=== PATIENT | male | born 1945 | race Caucasian/White ===

== ENCOUNTER → 2019-06-29 | Outpatient (CLI) | payer MEDICARE ==
[2019-06-29 15:22] LABS: HCT 47.1 % (39.0-53.0); HGB 15.9 gm/dL (13.0-17.5); MCH 30.3 pg (25.0-35.0); MCHC 33.8 g/dL (31.0-37.0); MCV 89.7 fL (80.0-100.0); Mean Platelet Volume 9.3; Platelet Count 165 k/uL (150-450); RBC 5.25 m/uL (4.30-5.90); RDW 15.2 % (11.5-15.5); WBC 7.4 k/uL (3.8-10.6)
[2019-06-29 15:50] LABS: Potassium 4.5 mmol/L (3.5-5.1)
== END | disposition home or self-care (01) ==
LOC: LABPAT 15:00
PROVIDERS: ATTEND Internal Medicine Interventional Cardiology
DX: Z01.812 Encounter for preprocedural laboratory examination (principal); I42.8 Other cardiomyopathies
CPT/HCPCS: 36415; 80051; 82565; 84520; 85027

== ENCOUNTER 2019-07-11 07:59 | Day surgery (SDC) | payer MEDICARE ==
[2019-07-06 12:07] VITALS: BMI 28.5
[2019-07-11 08:21] VITALS: TEMP 97.6
[2019-07-11] MEDS ORDERED: fentaNYL (PF) 50 MCG/ML 2 ML AMP ONE (08:44)
[2019-07-11] MEDS ORDERED: SODIUM CHLORIDE 0.9% 500 ML 500 ML IV ONE (08:56)
[2019-07-11] MEDS: BENZOCAINE SPRAY 1 CAN MUCOUS MEM ONE ×2 (08:56→09:10)
[2019-07-11] MEDS ORDERED: fentaNYL (PF) 50 MCG/ML 2 ML AMP IVP ONE (09:05)
[2019-07-11] MEDS: MIDAZOLAM (PF) 2 MG/2 ML VIAL IVP ONE ×2 (09:05→09:11)
[2019-07-11] MEDS ORDERED: SODIUM CHLORIDE 0.9% 1,000 ML IV SCH (09:45)
--- NOTE | 2019-07-11 09:57 | ECHOT ---
TRANSESOPHAGEAL ECHOCARDIOGRAM INDICATION: Evaluation of mitral valve. PROCEDURE: After explaining the procedure to the patient, its risks and the complications, his blood pressure, heart rate, O2 saturation was monitored. The throat was sprayed with Cetacaine. He received 25 mcg intravenous fentanyl and 2 mg intravenous Versed. The probe was introduced in the esophagus without difficulty. Images were obtained. Following that, the probe was removed. There was no immediate complication. FINDINGS: Left atrial size is dilated measuring 4.6 cm. Left atrial appendage is normal. Left ventricular size is normal. There is mild global hypokinesis, estimated ejection fraction 50%. The aortic valve revealed fibrocalcific change of the aortic cusp with preserved opening. Mitral valve revealed mild thickening of the mitral valve leaflets with no clear prolapse. Tricuspid valve was not well visualized. Descending thoracic aorta revealed no evidence of atherosclerotic changes. No pericardial effusion was noted. Doppler, pulse wave and color Doppler obtained and revealed moderate mitral regurgitation. The tricuspid valve was not well visualized and revealed mild tricuspid regurgitation. There was no shunting by color Doppler study. CONCLUSION: 1. Dilated left atrium with normal appearance left atrial appendage. 2. Normal left ventricular size with mild impairment of ventricular systolic function. 3. Aortic sclerosis with mild aortic regurgitation. 4. Mild thickening of the mitral valve leaflets with moderate central mitral regurgitation. 5. Tricuspid valve was not well visualized with at least mild tricuspid regurgitation. 6. No shunting by color Doppler study or contrast bubble study. 7. No pericardial effusion. 8. Normal appearance of the descending thoracic aorta. MMODL / IJN: [id number] / ADRIANA
[2019-07-11 10:19] VITALS: BP 155/90; PULSE 85; RESP 18
[2019-07-12] MEDS ORDERED: LISINOPRIL 5 MG TAB PO SCH (09:00)
[2019-07-12] MEDS ORDERED: ASPIRIN 325 MG TAB PO SCH (09:00)
== END 2019-07-11 10:30 | disposition home or self-care (01) ==
LOC: CATHCVL 07:59
PROVIDERS: ATTEND Internal Medicine Interventional Cardiology
DX: I08.3 Combined rheumatic disorders of mitral, aortic and tricuspid valves (principal); I42.9 Cardiomyopathy, unspecified; G47.33 Obstructive sleep apnea (adult) (pediatric); Z79.82 Long term (current) use of aspirin; Z79.899 Other long term (current) drug therapy; Z72.0 Tobacco use
CPT/HCPCS: 93312; 93320; 93325; J3010; J2250

== ENCOUNTER → 2021-04-17 | Outpatient (CLI) | payer MEDICARE ==
[2021-04-17 14:43] LABS: HCT 42.8 % (39.0-53.0); MCH 29.9 pg (25.0-35.0); MCHC 32.6 g/dL (31.0-37.0); MCV 91.7 fL (80.0-100.0); Mean Platelet Volume 9.5; Platelet Count 172 k/uL (150-450); RBC 4.67 m/uL (4.30-5.90); RDW 14.9 % (11.5-15.5); WBC 8.1 k/uL (3.8-10.6)
[2021-04-17 14:48] LABS: African American GFR (CKD) >90 (>60 ml/min/1.73 sqM); Anion Gap 5 mmol/L; Blood Urea Nitrogen 24 mg/dL (9-20); Carbon Dioxide 26 mmol/L (22-30); Chloride 107 mmol/L (98-107); Non-African American GFR(CKD) 85 (>60 ml/min/1.73 sqM); Potassium 4.3 mmol/L (3.5-5.1); Sodium 138 mmol/L (137-145)
== END | disposition home or self-care (01) ==
LOC: LABPAT 14:08
PROVIDERS: ATTEND Internal Medicine Interventional Cardiology
DX: Z01.812 Encounter for preprocedural laboratory examination (principal); I47.1 Supraventricular tachycardia
CPT/HCPCS: 36415; 80051; 82565; 84520; 85027

== ENCOUNTER 2021-05-08 09:31 | Day surgery (SDC) | payer MEDICARE ==
[2021-05-07 09:52] VITALS: BMI 27.8
[~2021-05-08 09:31] MED LIST: ALPRAZolam 0.25 MG TAB PO PRN; ALPRAZolam 0.5 MG TAB PO PRN; ASPIRIN 325 MG TAB PO STA; HEPARIN SODIUM,PORCINE 10,000 UNIT in SODIUM CHLORIDE 0.9% 1,000 ML IRRIGATION PRN; HEPARIN SODIUM,PORCINE 2,500 UNIT in SODIUM CHLORIDE 0.9% 250 ML IRRIGATION PRN; NITROGLYCERIN SL TABS 0.4 MG TAB SUBLINGUAL PRN; SODIUM CHLORIDE 0.9% 1,000 ML in EMPTY BAG 1 BAG IV ONE
[2021-05-08] MEDS ORDERED: MIDAZOLAM 2 MG/2 ML VIAL IV ONE (12:25)
[2021-05-08] MEDS ORDERED: LIDOCAINE 1% INJ 10MG/ML (20 ML MDV) SQ ONE (12:30)
[2021-05-08] MEDS ORDERED: IOPAMIDOL-370 125ML BTL INJ ONE (12:59)
[2021-05-08] MEDS ORDERED: CLOPIDOGREL 75 MG TAB PO ONE (13:00)
[2021-05-08] MEDS ORDERED: ZOLPIDEM 5 MG TAB PO PRN (13:10)
[2021-05-08] MEDS ORDERED: ATROPINE SULFATE 0.1 MG/ML 10ML SYRINGE IV PRN (13:10)
[2021-05-08] MEDS ORDERED: MAG HYDROX/AL HYDROX/SIMETH 30 ML CUP PO PRN (13:10)
[2021-05-08] MEDS ORDERED: RX INFO: IV CONTRAST WAS GIVEN 1 EACH MISC MISCELLANE PRN (13:10)
[2021-05-08] MEDS ORDERED: NITROGLYCERIN SL TABS 0.4 MG TAB SUBLINGUAL PRN (13:10)
[2021-05-08] MEDS ORDERED: SODIUM CHLORIDE 0.9% 1,000 ML IV SCH (13:15)
[2021-05-08] MEDS ORDERED: METOPROLOL SUCCINATE (ER) 25 MG TAB.ER.24H PO SCH (17:30)
--- NOTE | 2021-05-08 19:37 | PTCA ---
PERCUTANEOUSTRANS CORORONARY ANGIOGRAPHY DATE OF SERVICE: May 08, 2021. PERFORMING PHYSICIAN: Rajat Murillo MD. PROCEDURE PERFORMED: 1. Successful stenting of the first obtuse marginal branch of left circumflex using 2.75 x 15 mm Xience drug-eluting stent with an excellent angiographic results and reduction of stenosis from 80% to 0%. 2. Selective left common femoral artery angiogram. INDICATION: This is a 75-year-old gentleman who was diagnosed recently with cardiomyopathy. He was experiencing also symptoms of shortness of breath. He underwent myocardial perfusion imaging stress test and that came into be abnormal. Subsequently, he underwent a heart catheterization and that revealed severe disease involving OM1 of the LCX. APPROACH: Left common femoral artery. COMPLICATION: None. LEVEL OF SEDATION: Moderate with sedation length of 32 minutes. PROCEDURE DESCRIPTION: After obtaining informed consent, the patient was brought to the cardiac laborer shaft sinking. The left common femoral artery was cannulated using micropuncture technique and a micropuncture wire passed easily. Then I placed a 23 cm 6-Hungarian Brite tip sheath. The aortoiliac was extremely tortuous. Anticoagulation was achieved using heparin. Subsequently, the left main was engaged using JL4 guide. OM1 was wired using a run-through wire. PTCA ballooning was performed using 2.5 x 12 mm balloon before I deployed 2.75 x 15 mm Xience drug-eluting stent where the stent was positioned under fluoroscopy guidance and deployed under 14 atmospheres for 20 seconds with the following angiogram showing excellent angiographic results with reduction of stenosis from 80% to 0%. By the end, I did selective left common femoral artery angiogram. The procedure was completed without any complication. POSTPROCEDURE MANAGEMENT: 1. Dual anti-platelet therapy. 2. Aggressive cholesterol control. 3. Risk factor modifications. 4. Follow up with the patient. MMODL / IJN: [id number] /
[2021-05-08] MEDS ORDERED: ATORVASTATIN 20 MG TAB PO SCH (21:00)
[2021-05-09 02:19] VITALS: TEMP 98
[2021-05-09 06:23] LABS: African American GFR (CKD) >90 (>60 ml/min/1.73 sqM); Non-African American GFR(CKD) 85 (>60 ml/min/1.73 sqM)
[2021-05-09 07:41] VITALS: BP 123/70; PULSE 61; RESP 16
[2021-05-09] MEDS ORDERED: ASPIRIN 325 MG TAB PO SCH (09:00)
[2021-05-09] MEDS ORDERED: lisinopriL 5 MG TAB PO SCH (09:00)
[2021-05-09] MEDS ORDERED: CLOPIDOGREL 75 MG TAB PO SCH (09:00)
[2021-05-09] MEDS ORDERED: allopurinoL 300 MG TAB PO SCH (09:00)
[2021-05-09] MEDS ORDERED: LORATADINE 10 MG TAB PO SCH (09:00)
[2021-05-09] MEDS ORDERED: FLUTICASONE 50MCG/SPRAY NASAL 16GM EA NOSTRIL SCH (09:00)
[2021-05-09] MEDS ORDERED: ZINC SULFATE 220 MG CAP PO SCH (09:00)
[2021-05-09] MEDS ORDERED: ASCORBIC ACID 500 MG TAB PO SCH (09:00)
[2021-05-09] MEDS ORDERED: FAMOTIDINE 20 MG TAB PO SCH (09:00)
--- NOTE | 2021-05-09 11:23 | DS ---
DISCHARGE SUMMARY DATE OF ADMISSION: 05/08/2021 DATE OF DISCHARGE: 05/09/2021 BRIEF HISTORY: This is a very pleasant 75-year-old gentleman who underwent yesterday a heart catheterization and stenting of the left circumflex coronary artery with an excellent angiographic result and without any complication from left groin approach. He was seen this morning. He was asymptomatic. The left groin is soft and nontender and without any bruises. The patient is going to be discharged on dual anti-platelet therapy along with high intensity statin and I will follow up with the patient next week in the office. MMZOËL / IJN: [id number] /
== END 2021-05-09 11:36 | disposition home or self-care (01) ==
LOC: CATHCVL 09:31 → 6NMEDSUR 13:00 → CATHCVL 05-09 11:36
PROVIDERS: ATTEND Internal Medicine Interventional Cardiology
DX: I42.9 Cardiomyopathy, unspecified (principal); R06.02 Shortness of breath; I10 Essential (primary) hypertension; F17.210 Nicotine dependence, cigarettes, uncomplicated
CPT/HCPCS: 82565; C9600; C1760; C1887 ×2; C1725; C1769 ×5; C1894 ×2; C1874; J2250; J2001; J1644; Q9967

== ENCOUNTER 2022-01-30 15:12 | Inpatient (IN) | payer MEDICARE ==
--- NOTE | 2022-01-30 16:33 | ED ---
General Adult HPI - General Chief complaint: Dizziness Stated complaint: Low BP, dizziness Time Seen by Provider: 01/30/22 16:15 Source: patient, RN notes reviewed, old records reviewed Mode of arrival: ambulatory Limitations: no limitations - History of Present Illness Initial comments: This is a 76-year-old male who presents emergency Department with a past medical history significant for coronary artery disease with one stent and atrial fibrillation. Patient states he has had multiple episodes over the years of feeling like he might pass out but they only typically lasts a few seconds and then it subsides particularly after he takes a few deep breaths. Patient states over the last week has been having an episode at least once a day and over the last 3 days he is having multiple episodes all day long to the point where he thinks he might pass out and it culminated in him becoming extremely lightheaded thinking he was going to pass out while he was lying down at the dentist's office. Patient denies any fever chills or cough per patient denies any chest pain when it occurs patient states he does not feel his heart racing or any palpitations when it occurs. Patient denies abdominal pain patient denies nausea vomiting or diarrhea. Patient denies any swelling to his legs. - Related Data Home Medications Medication Instructions Recorded Confirmed Zinc 50 mg PO DAILY 07/06/19 01/30/22 Allopurinol [Zyloprim] 300 mg PO DAILY 05/07/21 01/30/22 Ascorbic Acid [Vitamin C] 1,000 mg PO DAILY 05/07/21 01/30/22 Metoprolol Succinate [Toprol XL] 25 mg PO AC-BRKFST 05/07/21 01/30/22 Aspirin EC [Ecotrin Low Dose] 81 mg PO DAILY 01/30/22 01/30/22 Cholecalciferol [Vitamin D3 (25 25 mcg PO DAILY 01/30/22 01/30/22 Mcg = 1000 Iu)] Pantoprazole [Protonix] 40 mg PO DAILY 01/30/22 01/30/22 methylPREDNISolone [Medrol Dose See Taper PO DIRECTED 01/30/22 01/30/22 Pack] Previous Rx's Medication Instructions Recorded Clopidogrel [Plavix] 75 mg PO DAILY #90 tab 05/09/21 Allergies Allergy/AdvReac Type Severity Reaction Status Date / Time No Known Allergies Allergy Verified 01/30/22 17:55 Review of Systems ROS Statement: Those systems with pertinent positive or pertinent negative responses have been documented in the HPI. ROS Other: All systems not noted in ROS Statement are negative. Past Medical History Past Medical History: Cancer, GERD/Reflux, Myocardial Infarction ([place]), Osteoarthritis (OA) Additional Past Medical History / Comment(s): mitral valve leak, murmer, gout, skin cancer Last Myocardial Infarction Date:: unknown History of Any Multi-Drug Resistant Organisms: None Reported Past Surgical History: Orthopedic Surgery Additional Past Surgical History / Comment(s): RIGHT KNEE ARTHROSCOPY, vidal cataracts Past Anesthesia/Blood Transfusion Reactions: No Reported Reaction Past Psychological History: No Psychological Hx Reported Smoking Status: Former smoker Past Alcohol Use History: None Reported Past Drug Use History: None Reported - Past Family History Father Family Medical History: Cancer Additional Family Medical History / Comment(s): brain tumor General Exam - General Exam Comments Initial Comments: GENERAL: Patient is well-developed and well-nourished. Patient is nontoxic and well- hydrated and is in no acute distress. ENT: Neck is soft and supple. No significant lymphadenopathy is noted. Oropharynx is clear. Moist mucous membranes. Neck has full range of motion without eliciting any pain. EYES: The sclera were anicteric and conjunctiva were pink and moist. Extraocular movements were intact and pupils were equal round and reactive to light. Eyelids were unremarkable. PULMONARY: Unlabored respirations. Good breath sounds bilaterally. No audible rales rhon chi or wheezing was noted. CARDIOVASCULAR: Patient has an irregular heart rate is tachycardic at about 100/m ABDOMEN: Soft and nontender with normal bowel sounds. SKIN: Skin is clear with no lesions or rashes and otherwise unremarkable. NEUROLOGIC: Patient is alert and oriented x3. Cranial nerves II through XII are grossly intact. Motor and sensory are also intact. Normal speech, volume and content. Symmetrical smile. MUSCULOSKELETAL: Normal extremities with adequate strength and full range of motion. No lower extremity swelling or edema. No calf tenderness. LYMPHATICS: No significant lymphadenopathy is noted PSYCHIATRIC: Normal psychiatric evaluation. Limitations: no limitations Course Vital Signs 01/30/22 01/30/22 01/30/22 15:26 16:44 17:37 Temperature 98.3 F Pulse Rate 84 77 181 H Pulse Rate [ 77 Bundle Breaker ] Respiratory 20 18 18 Rate Blood Pressure 148/99 140/117 140/120 O2 Sat by Pulse 97 96 94 L Oximetry 01/30/22 01/30/22 18:54 20:20 Temperature 98 F Pulse Rate 79 75 Pulse Rate [ Bundle Breaker ] Respiratory 18 20 Rate Blood Pressure 147/83 129/88 O2 Sat by Pulse 97 95 Oximetry Medical Decision Making - Medical Decision Making Patient had an episode of lightheadedness while in the emergency Department we did an EKG when it occurred EKG showed atrial fibrillation with rapid ventricular response at 160 bpm QRS is 100 a QT interval is 270 QTC is 362. Patient's EKG shows no ST segment elevation. Patient was placed on a Cardizem drip at 5 mg per hour. Patient had no more episodes since the Cardizem drip started. Repeat EKG was done shows sinus rhythm at 79 bpm OK interval is 201 QRS is 109 QT interval was 397 QTC is 425. Patient was throwing some PVCs as well. Patient's Cardizem drip was turned down to 2.5 mg per hour. I spoke with some physicians he agreed to admit the patient admitted the patient wrote admitting orders I consult cardiology. - Lab Data Result diagrams: 01/30/22 17:00 01/30/22 17:00 Lab Results 01/30/22 01/30/22 01/30/22 Range/Units 17:00 17:00 17:00 WBC 9.9 (3.8-10.6) k/uL RBC 5.38 (4.30-5.90) m/uL Hgb 16.3 (13.0-17.5) gm/dL Hct 50.2 (39.0-53.0) % MCV 93.2 (80.0-100.0) fL MCH 30.3 (25.0-35.0) pg MCHC 32.5 (31.0-37.0) g/dL RDW 14.1 (11.5-15.5) % Plt Count 174 (150-450) k/uL MPV 9.2 Neutrophils % 78 % Lymphocytes % 12 % Monocytes % 5 % Eosinophils % 2 % Basophils % 1 % Neutrophils # 7.7 (1.3-7.7) k/uL Lymphocytes # 1.2 (1.0-4.8) k/uL Monocytes # 0.5 (0-1.0) k/uL Eosinophils # 0.2 (0-0.7) k/uL Basophils # 0.1 (0-0.2) k/uL PT 10.5 (9.0-12.0) sec INR 1.0 (<1.2) APTT 23.7 (22.0-30.0) sec Sodium 138 (137-145) mmol/L Potassium 4.2 (3.5-5.1) mmol/L Chloride 106 (98-107) mmol/L Carbon Dioxide 22 (22-30) mmol/L Anion Gap 10 mmol/L BUN 26 H (9-20) mg/dL Creatinine 0.82 (0.66-1.25) mg/dL Est GFR (CKD-EPI)AfAm >90 (>60 ml/min/1.73 sqM) Est GFR (CKD-EPI)NonAf 85 (>60 ml/min/1.73 sqM) Glucose 106 H (74-99) mg/dL Calcium 9.2 (8.4-10.2) mg/dL Magnesium 2.2 (1.6-2.3) mg/dL Total Bilirubin 0.9 (0.2-1.3) mg/dL AST 21 (17-59) U/L ALT 23 (4-49) U/L Alkaline Phosphatase 59 (38-126) U/L Troponin I (0.000-0.034) ng/mL Total Protein 6.6 (6.3-8.2) g/dL Albumin 4.1 (3.5-5.0) g/dL 01/30/22 Range/Units 17:00 WBC (3.8-10.6) k/uL RBC (4.30-5.90) m/uL Hgb (13.0-17.5) gm/dL Hct (39.0-53.0) % MCV (80.0-100.0) fL MCH (25.0-35.0) pg MCHC (31.0-37.0) g/dL RDW (11.5-15.5) % Plt Count (150-450) k/uL MPV Neutrophils % % Lymphocytes % % Monocytes % % Eosinophils % % Basophils % % Neutrophils # (1.3-7.7) k/uL Lymphocytes # (1.0-4.8) k/uL Monocytes # (0-1.0) k/uL Eosinophils # (0-0.7) k/uL Basophils # (0-0.2) k/uL PT (9.0-12.0) sec INR (<1.2) APTT (22.0-30.0) sec Sodium (137-145) mmol/L Potassium (3.5-5.1) mmol/L Chloride (98-107) mmol/L Carbon Dioxide (22-30) mmol/L Anion Gap mmol/L BUN (9-20) mg/dL Creatinine (0.66-1.25) mg/dL Est GFR (CKD-EPI)AfAm (>60 ml/min/1.73 sqM) Est GFR (CKD-EPI)NonAf (>60 ml/min/1.73 sqM) Glucose (74-99) mg/dL Calcium (8.4-10.2) mg/dL Magnesium (1.6-2.3) mg/dL Total Bilirubin (0.2-1.3) mg/dL AST (17-59) U/L ALT (4-49) U/L Alkaline Phosphatase (38-126) U/L Troponin I 0.017 (0.000-0.034) ng/mL Total Protein (6.3-8.2) g/dL Albumin (3.5-5.0) g/dL Critical Care Time Critical Care Time: Yes Total Critical Care Time: 35 Disposition Clinical Impression: Atrial fibrillation with rapid ventricular response, Near syncope Disposition: ADMITTED IP TO THIS [facility] Time of Disposition: 19:20
[2022-01-30 17:12] LABS: Basophils # (A) 0.1 k/uL (0-0.2); Basophils % (A) 1 %; Eosinophils # (A) 0.2 k/uL (0-0.7); Eosinophils % (A) 2 %; HCT 50.2 % (39.0-53.0); HGB 16.3 gm/dL (13.0-17.5); Lymphocytes # (A) 1.2 k/uL (1.0-4.8); Lymphocytes % (A) 12 %; MCH 30.3 pg (25.0-35.0); MCHC 32.5 g/dL (31.0-37.0); MCV 93.2 fL (80.0-100.0); Mean Platelet Volume 9.2; Monocytes # (A) 0.5 k/uL (0-1.0); Monocytes % (A) 5 %; Neutrophils # (A) 7.7 k/uL (1.3-7.7); Neutrophils % (A) 78 %; Platelet Count 174 k/uL (150-450); RBC 5.38 m/uL (4.30-5.90); RDW 14.1 % (11.5-15.5); WBC 9.9 k/uL (3.8-10.6)
[2022-01-30 17:28] LABS: ALT 23 U/L (4-49); AST 21 U/L (17-59); African American GFR (CKD) >90 (>60 ml/min/1.73 sqM); Albumin 4.1 g/dL (3.5-5.0); Alkaline Phosphatase 59 U/L (38-126); Anion Gap 10 mmol/L; Blood Urea Nitrogen 26 mg/dL (9-20); Calcium 9.2 mg/dL (8.4-10.2); Carbon Dioxide 22 mmol/L (22-30); Chloride 106 mmol/L (98-107); Glucose 106 mg/dL (74-99); Magnesium 2.2 mg/dL (1.6-2.3); Non-African American GFR(CKD) 85 (>60 ml/min/1.73 sqM); Potassium 4.2 mmol/L (3.5-5.1); Sodium 138 mmol/L (137-145); Total Bilirubin 0.9 mg/dL (0.2-1.3); Total Protein 6.6 g/dL (6.3-8.2)
[2022-01-30 17:33] LABS: Partial Thromboplastin Time 23.7 sec (22.0-30.0); Prothrombin Time 10.5 sec (9.0-12.0)
[2022-01-30] MEDS ORDERED: DILTIAZEM DRIP BOLUS FROM BAG 1 MG SOLN IV ONE (17:36)
[2022-01-30] MEDS ORDERED: DILTIAZEM 125 MG in SODIUM CHLORIDE 0.9% 100 ML IV SCH (17:45)
--- NOTE | 2022-01-30 19:02 | XR ---
EXAMINATION TYPE: XR chest 2V DATE OF EXAM: 01/30/2022 6:53 PM COMPARISON:None TECHNIQUE: XR chest 2V Frontal and lateral views of the chest. CLINICAL INDICATION:Male, 76 years old with history of Chest Pain; FINDINGS: Lungs/Pleura: Low lung volumes are present. There is no evidence of pleural effusion, focal consolida tion, or pneumothorax. Pulmonary vascularity: Unremarkable. Heart/mediastinum: Cardiomediastinal silhouette is unremarkable. Musculoskeletal: No acute osseous pathology. IMPRESSION: No acute cardiopulmonary disease/process.
[2022-01-30] MEDS ORDERED: NITROGLYCERIN SL TABS 0.4 MG TAB SUBLINGUAL PRN (19:21)
[2022-01-31] MEDS ORDERED: HEPARIN SODIUM 1,000 UN/ML (10ML VL) IV ONE (01:01)
[2022-01-31] MEDS ORDERED: HEPARIN SODIUM 1,000 UN/ML (10ML VL) IV PRN (01:01)
[2022-01-31] MEDS ORDERED: HEPARIN SOD,PORK IN 0.45% NACL 25,000 UNIT in 0.45% NACL 1 250ML.BAG IV SCH (01:15)
--- NOTE | 2022-01-31 01:23 | P.HPIM ---
History of Present Illness H&P Date: 01/30/22 Patient is a 76-year-old male with a PMH of coronary artery disease status post 1 stent and gout who presented to the emergency room for palpitations and lightheadedness. The patient reports that over the past several years, he has had intermittent episodes of palpitations accompanied with lightheadedness usually lasting for a few seconds and resolving spontaneously. He reports having similar episode today which lasted for 3-5 minutes, which prompted him to come to the emergency room. 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 Murillo his deputy editor in chief in the office, during which an EKG was performed and was unremarkable. Notes that previously he was having an episode once weekly but over the past few weeks has been having episodes nearly daily and often multiple times a day. He reports feeling back to his baseline at the time of interview. He denied experiencing chest discomfort during any of these episodes. Reports occasional mild chest accompanied shortness of breath without nausea, or vomiting. Also denied fever, chills, cough, abdominal pain, diarrhea. EKG in the emergency room revealed A. fib with RVR at 168 bpm with repeat EKG showing sinus rhythm with PVCs at 75 bpm with Q waves in leads II, III, aVF, as well as V1 and V2. Chest x-ray was unremarkable. Laboratory evaluation was remarkable for troponin of 0.017. Review of systems: Pertinent positives and negatives as discussed in HPI, a complete review of systems was performed and all other systems are negative. Physical examination: General: non toxic, no distress, appears at stated age, overweight Derm: no unusual rashes/lesions no unusual ecchymoses, warm, dry Head: atraumatic, normocephalic, symmetric Eyes: EOMI, no lid lag, anicteric sclera, pupils equal round reactive to light ENT: Nose and ears atraumatic, no thrush, no pharyngeal erythema Neck: No thyromegaly, no cervical lymphadenopathy, trachea midline, supple Mouth: no lip lesion, mucus membranes moist Cardiovascular: Irregularly irregular, no murmur, positive posterior tibial pulse bilateral, no edema, capillary refill less than 2 seconds Lungs: CTA bilateral, no rhonchi, no rales , no accessory muscle use Abdominal: soft, nontender to palpation, no guarding, no appreciable organomegaly, normal bowel sounds Ext: no gross muscle atrophy, muscle strength 5 out of 5 in all 4 extremities grossly, no contractures, Neuro: CN II-XI grossly intact, light touch intact all 4 extremities, finger to nose within normal limits, Psych: Alert, oriented, appropriate affect Assessment/plan Newly diagnosed Ngoc. thais with RVR -Continue Cardizem infusion -Heparin infusion -Cardiology consulted -Cardiac monitoring -Echocardiogram -Check TSH Chronic conditions: Coronary artery disease status post stent -Continue with home meds DVT prophylaxis -Heparin infusion The patient is admitted with an anticipated less than 2 midnight stay for evaluation of afib CODE STATUS: Full Code Discussed with: Patient Anticipated discharge date: in am Anticipated discharge place: Home Past Medical History Past Medical History: Cancer, GERD/Reflux, Myocardial Infarction ([place]), Osteoarthritis (OA) Additional Past Medical History / Comment(s): mitral valve leak, murmer, gout, skin cancer Last Myocardial Infarction Date:: unknown History of Any Multi-Drug Resistant Organisms: None Reported Past Surgical History: Orthopedic Surgery Additional Past Surgical History / Comment(s): RIGHT KNEE ARTHROSCOPY, vidal cataracts Past Anesthesia/Blood Transfusion Reactions: No Reported Reaction Past Psychological History: No Psychological Hx Reported Smoking Status: Former smoker Past Alcohol Use History: None Reported Past Drug Use History: None Reported - Past Family History Father Family Medical History: Cancer Additional Family Medical History / Comment(s): brain tumor Medications and Allergies Home Medications Medication Instructions Recorded Confirmed Type Zinc 50 mg PO DAILY 07/06/19 01/30/22 History Allopurinol [Zyloprim] 300 mg PO DAILY 05/07/21 01/30/22 History Ascorbic Acid [Vitamin C] 1,000 mg PO DAILY 05/07/21 01/30/22 History Metoprolol Succinate [Toprol XL] 25 mg PO AC-BRKFST 05/07/21 01/30/22 History Clopidogrel [Plavix] 75 mg PO DAILY #90 tab 05/09/21 01/30/22 Rx Aspirin EC [Ecotrin Low Dose] 81 mg PO DAILY 01/30/22 01/30/22 History Cholecalciferol [Vitamin D3 (25 25 mcg PO DAILY 01/30/22 01/30/22 History Mcg = 1000 Iu)] Pantoprazole [Protonix] 40 mg PO DAILY 01/30/22 01/30/22 History methylPREDNISolone [Medrol Dose See Taper PO DIRECTED 01/30/22 01/30/22 His tory Pack] Allergies Allergy/AdvReac Type Severity Reaction Status Date / Time No Known Allergies Allergy Verified 01/30/22 17:55 Physical Exam Vitals: Vital Signs Temp Pulse Pulse Resp BP Pulse Ox 01/30/22 20:20 98 F 75 20 129/88 95 01/30/22 18:54 79 18 147/83 97 01/30/22 17:37 181 H 18 140/120 94 L 01/30/22 16:44 77 77 18 140/117 96 01/30/22 15:26 98.3 F 84 20 148/99 97 Intake and Output 01/30/22 01/30/22 01/30/22 06:59 14:59 22:59 Intake Total 13.667 Balance 13.667 Intake: Intake, IV Titration 13.667 Amount Diltiazem 125 mg In 13.667 Sodium Chloride 0.9% 100 ml @ 5 MG/HR 5 mls/hr IV .Q24H [facility] Rx#:[id number] Other: Weight 90.718 kg Results CBC & Chem 7: 01/30/22 17:00 01/30/22 17:00 Labs: Abnormal Lab Results - Last 24 Hours (Table) 01/30/22 Range/Units 17:00 BUN 26 H (9-20) mg/dL Glucose 106 H (74-99) mg/dL
[2022-01-31 01:49] LABS: Partial Thromboplastin Time 23.8 sec (22.0-30.0); Prothrombin Time 10.9 sec (9.0-12.0)
[2022-01-31] MEDS: PANTOPRAZOLE 40 MG TABLET PO SCH (06:37)
[2022-01-31] MEDS ORDERED: METOPROLOL SUCCINATE (ER) 25 MG TAB.ER.24H PO SCH (07:30)
[2022-01-31] MEDS: ASPIRIN 325 MG TAB PO SCH (07:57)
[2022-01-31] MEDS: allopurinoL 300 MG TAB PO SCH (07:57)
[2022-01-31] MEDS: CLOPIDOGREL 75 MG TAB PO SCH (07:57)
[2022-01-31] MEDS ORDERED: METOPROLOL TARTRATE 50 MG TAB PO SCH (09:00)
[2022-01-31] MEDS ORDERED: METOPROLOL SUCCINATE (ER) 50 MG TAB.ER.24H PO SCH (09:00)
[2022-01-31] MEDS ORDERED: METOPROLOL SUCCINATE (ER) 25 MG TAB.ER.24H PO ONE (09:00)
[2022-01-31] MEDS: APIXABAN 5 MG TAB PO SCH ×2 (10:21→19:58)
[2022-01-31 10:42] VITALS: BMI 26.6
[2022-01-31] MEDS: FLECAINIDE 50 MG TAB PO SCH ×2 (12:12→19:58)
--- NOTE | 2022-01-31 13:34 | P.CRDCN ---
History of Present Illness Consult date: 01/31/22 Consult reason: atrial fibrillation History of present illness: HISTORY OF PRESENT ILLNESS This is a 76-year-old male patient of Dr. Murillo with past medical history of hypertension, valvular heart disease and hyperlipidemia, cardiomyopathy with k nown EF of 40% with moderate to severe mitral regurgitation. 24 hour Holter monitor in 2020 revealed paroxysmal atrial tachycardia and at that time, patient was started on metoprolol. 05/08/2021 patient underwent successful stenting of the first obtuse marginal branch of the left circumflex Patient was on Dr. Murillo on and had no complaints at that time. H yesterday, while patient was at the dentist office he had episode of lightheadedness and thought he was going to pass out. He was found have a blood pressure of 75/50. He states he's had episodes like this for months. He was in [place] where his dentist is located went to initially to the [facility] but due to a 5 hour wait to be seen, patient's drove him to [facility] for evaluation. EKG was atrial fibrillation at rate of 168 bpm Initial blood pressure 148/99 CBC was unremarkable. INR 1.0. Electrolytes normal. BUN 26 creatinine 0.82. Blood sugar 106. Magnesium 2.2. Liver function tests normal. Troponin negative 3. TSH 1.780. Chest x-ray reveals no acute cardiopulmonary disease REVIEW OF SYSTEMS Constitutional: No fever, no chills. No weakness, fatigue or lethargy. EENT: No headache. No dizziness. Lungs: No shortness of breath, cough, no sputum production. No wheezing. Cardiovascular: No chest pain, no lower extremity edema. No palpitations. No paroxysmal nocturnal dyspnea. No orthopnea. Reports lightheadedness or dizziness. Reports near syncopal episodes. Abdominal: No abdominal pain. No nausea, vomiting. No diarrhea. No constipation. No bloody or tarry stools.. No loss of appetite. Genitourinary: No dysuria.. No urinary retention. Musculoskeletal: No myalgias. No muscle weakness, no gait dysfunction, no frequent falls. No back pain. No neck pain. Integumentary: No wounds, no lesions. No rash or pruritus. No unusual bruising. Neurologic: No aphasia. No facial droop. No change in mentation. No head injury. No headache. No paralysis. No paresthesia. Psychiatric: No depression. No anxiety. Endocrine: No abnormal blood sugars. PHYSICAL EXAMINATION Gen: This is a 86-year-old male. He is resting in bed and appears to be comfortable and in no acute distress. HEENT: Head is atraumatic, normocephalic. Pupils equal, round. Sclerae is anicteric. NECK: Supple. No JVD. No lymphadenopathy. No thyromegaly. LUNGS: Clear to auscultation. No wheezes or rhonchi. No intercostal retractions. HEART: Regular rate and rhythm. Systolic murmur. surveillance system monitor sinus rhythm running in the 70s and 80s ABDOMEN: Soft. Bowel sounds are present. No masses. No tenderness. EXTREMITIES: No pedal edema. No calf tenderness. NEUROLOGICAL: Patient is awake, alert and oriented x3. Cranial nerves 2 through 12 are grossly intact. ASSESSMENT A. fib with RVR, new diagnosis History of paroxysmal atrial tachycardia Hypertension Hyperlipidemia Cardiomyopathy with EF of 40% Moderate to severe mitral regurgitation Coronary artery disease PLAN Discontinue heparin drip and Cardizem drip Continue patient on Toprol-XL 50 mg daily Start patient on eliquis 5 mg twice daily and flecainide 100 mg every 12 hours Obtain 2-D echocardiogram and Doppler study to assess cardiac structure and function Would like to monitor patient for the next 24 hours after starting flecainide Further recommendations to follow based upon clinical course Thank you kindly for this consultation. Nurse practitioner note has been reviewed, I agree with documented findings and plan of care. Patient was seen and examined. Past Medical History Past Medical History: Cancer, GERD/Reflux, Myocardial Infarction (CO), Osteoarthritis (OA) Additional Past Medical History / Comment(s): mitral valve leak, murmer, gout, skin cancer Last Myocardial Infarction Date:: unknown History of Any Multi-Drug Resistant Organisms: None Reported Past Surgical History: Orthopedic Surgery Additional Past Surgical History / Comment(s): RIGHT KNEE ARTHROSCOPY, vidal cataracts Past Anesthesia/Blood Transfusion Reactions: No Reported Reaction Past Psychological History: No Psychological Hx Reported Smoking Status: Former smoker Past Alcohol Use History: None Reported Past Drug Use History: None Reported - Past Family History Father Family Medical History: Cancer Additional Family Medical History / Comment(s): brain tumor Medications and Allergies Home Medications Medication Instructions Recorded Confirmed Type Zinc 50 mg PO DAILY 07/06/19 01/30/22 History Allopurinol [Zyloprim] 300 mg PO DAILY 05/07/21 01/30/22 History Ascorbic Acid [Vitamin C] 1,000 mg PO DAILY 05/07/21 01/30/22 History Metoprolol Succinate [Toprol XL] 25 mg PO AC-BRKFST 05/07/21 01/30/22 History Clopidogrel [Plavix] 75 mg PO DAILY #90 tab 05/09/21 01/30/22 Rx Aspirin EC [Ecotrin Low Dose] 81 mg PO DAILY 01/30/22 01/30/22 History Cholecalciferol [Vitamin D3 (25 25 mcg PO DAILY 01/30/22 01/30/22 History Mcg = 1000 Iu)] Pantoprazole [Protonix] 40 mg PO DAILY 01/30/22 01/30/22 History methylPREDNISolone [Medrol Dose See Taper PO DIRECTED 01/30/22 01/30/22 H istory Pack] Allergies Allergy/AdvReac Type Severity Reaction Status Date / Time No Known Allergies Allergy Verified 01/30/22 17:55 Physical Exam Vitals: Vital Signs Temp Pulse Pulse Resp BP BP Pulse Ox 01/31/22 04:00 97.8 F 70 17 117/79 94 L 01/31/22 01:07 80 18 01/31/22 00:00 97.6 F 80 18 141/89 94 L 01/30/22 22:00 79 22 114/95 97 01/30/22 20:20 98 F 75 20 129/88 95 01/30/22 18:54 79 18 147/83 97 01/30/22 17:37 181 H 18 140/120 94 L 01/30/22 16:44 77 77 18 140/117 96 01/30/22 15:26 98.3 F 84 20 148/99 97 Intake and Output 01/30/22 01/31/22 01/31/22 22:59 06:59 14:59 Intake Total 13.667 120 Balance 13.667 120 Intake: Intake, IV Titration 13.667 Amount Diltiazem 125 mg In 13.667 Sodium Chloride 0.9% 100 ml @ 5 MG/HR 5 mls/hr IV .Q24H [facility] Rx#:[id number] Oral 120 Other: # Voids 1 Weight 90.718 kg 86.7 kg Results 01/30/22 17:00 01/30/22 17:00 Cardiac Enzymes 01/30/22 01/30/22 01/30/22 Range/Units 17:00 17:00 19:54 AST 21 (17-59) U/L Troponin I 0.017 0.023 (0.000-0.034) ng/mL 01/30/22 Range/Units 22:04 AST (17-59) U/L Troponin I 0.023 (0.000-0.034) ng/mL Coagulation 01/30/22 01/31/22 Range/Units 17:00 01:09 PT 10.5 10.9 (9.0-12.0) sec APTT 23.7 23.8 (22.0-30.0) sec CBC 01/30/22 Range/Units 17:00 WBC 9.9 (3.8-10.6) k/uL RBC 5.38 (4.30-5.90) m/uL Hgb 16.3 (13.0-17.5) gm/dL Hct 50.2 (39.0-53.0) % Plt Count 174 (150-450) k/uL Comprehensive Metabolic Panel 01/30/22 Range/Units 17:00 Sodium 138 (137-145) mmol/L Potassium 4.2 (3.5-5.1) mmol/L Chloride 106 (98-107) mmol/L Carbon Dioxide 22 (22-30) mmol/L BUN 26 H (9-20) mg/dL Creatinine 0.82 (0.66-1.25) mg/dL Glucose 106 H (74-99) mg/dL Calcium 9.2 (8.4-10.2) mg/dL AST 21 (17-59) U/L ALT 23 (4-49) U/L Alkaline Phosphatase 59 (38-126) U/L Total Protein 6.6 (6.3-8.2) g/dL Albumin 4.1 (3.5-5.0) g/dL Current Medications Generic Name Dose Route Start Last Admin Trade Name Freq PRN Reason Stop Dose Admin Allopurinol 300 mg 01/31/22 09:00 01/31/22 07:57 Allopurinol 300 Mg Tab PO 300 mg DAILY PATSY Administration Aspirin 325 mg 01/31/22 09:00 01/31/22 07:57 Aspirin 325 Mg Tab PO 325 mg DAILY PATSY Administration Clopidogrel Bisulfate 75 mg 01/31/22 09:00 01/31/22 07:57 Clopidogrel 75 Mg Tab PO 75 mg DAILY PATSY Administration Heparin Sodium (Porcine) 0 unit 01/31/22 01:01 Heparin Sodium 1,000 Un/Ml (10ml Vl) IV PER PROTOCOL PRN Low PTT Protocol Diltiazem HCl 125 mg/ Sodium 125 mls @ 5 mls/hr 01/30/22 17:45 01/30/22 20:41 Chloride IV 2.5 mg/hr .Q24H PATSY 2.5 mls/hr Infusion 5 MG/HR Heparin Sodium/Sodium Chloride 250 mls @ 10 mls/hr 01/31/22 01:15 01/31/22 04:06 25,000 unit/ Sodium Chloride IV 11.0232 units/kg/hr .Q24H PATSY 10 mls/hr Administration Protocol 11.0232 UNITS/KG/HR Metoprolol Succinate 50 mg 02/01/22 09:00 Metoprolol Succinate (Er) 50 Mg Tab.Er.24h PO DAILY [facility] Nitroglycerin 0.4 mg 01/30/22 19:21 Nitroglycerin Sl Tabs 0.4 Mg Tab SUBLINGUAL Q5M PRN Chest Pain Pantoprazole Sodium 40 mg 01/31/22 07:30 01/31/22 06:37 Pantoprazole 40 Mg Tablet PO 40 mg AC-BRKFST [facility] Administration Intake and Output 01/30/22 01/31/22 01/31/22 22:59 06:59 14:59 Intake Total 13.667 120 Balance 13.667 120 Intake: Intake, IV Titration 13.667 Amount Diltiazem 125 mg In 13.667 Sodium Chloride 0.9% 100 ml @ 5 MG/HR 5 mls/hr IV .Q24H [facility] Rx#:[id number] Oral 120 Other: # Voids 1 Weight 90.718 kg 86.7 kg 01/30/22 17:00 01/30/22 17:00
--- NOTE | 2022-01-31 13:39 | P.PN ---
Subjective Progress Note Date: 01/31/22 History of Present Illness: H&P Date: 01/30/22 Patient is a 76-year-old male with a PMH of coronary artery disease status post 1 stent and gout who presented to the emergency room for palpitations and lightheadedness. The patient reports that over the past several years, he has had intermittent episodes of palpitations accompanied with lightheadedness usually lasting for a few seconds and resolving spontaneously. He reports having similar episode today which lasted for 3-5 minutes, which prompted him to come to the emergency room. 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 Murillo his occupational medicine physician in the office, during which an EKG was performed and was unremarkable. Notes that previously he was having an episode once weekly but over the past few weeks has been having episodes nearly daily and often multiple times a day. He reports feeling back to his baseline at the time of interview. He denied experiencing chest discomfort during any of these episodes. Reports occasional mild chest accompanied shortness of breath without nausea, or vomiting. Also denied fever, chills, cough, abdominal pain, diarrhea. EKG in the emergency room revealed A. fib with RVR at 168 bpm with repeat EKG showing sinus rhythm with PVCs at 75 bpm with Q waves in leads II, III, aVF, as well as V1 and V2. Chest x-ray was unremarkable. Laboratory evaluation was remarkable for troponin of 0.017. Interval history: Patient was seen and examined at the bedside. He denies any chest pain or shortness of breath. He converted to normal sinus rhythm overnight. Cardizem drip has been turned off Objective - Vital Signs Vital signs: Vital Signs Temp 97.8 F 01/31/22 12:00 Pulse 73 01/31/22 12:00 Resp 23 01/31/22 12:00 BP 133/83 01/31/22 12:00 Pulse Ox 96 01/31/22 12:00 Intake & Output 01/30/22 01/31/22 01/31/22 18:59 06:59 18:59 Intake Total 13.667 120 Balance 13.667 120 Weight 90.718 kg 86.7 kg 86.7 kg Intake: Intake, IV Titration 13.667 Amount Diltiazem 125 mg In 13.667 Sodium Chloride 0.9% 100 ml @ 5 MG/HR 5 mls/hr IV .Q24H [facility] Rx#:[id number] Oral 120 Other: # Voids 1 - Exam General: non toxic, no distress, appears at stated age Derm: warm, dry Head: atraumatic, normocephalic, symmetric Eyes: EOMI, no lid lag, anicteric sclera Mouth: no lip lesion, mucus membranes moist Cardiovascular: S1S2 reg, no murmur, positive posterior tibial pulse bilateral, Lungs: CTA bilateral, no rhonchi, no rales , no accessory muscle use Abdominal: soft, nontender to palpation, no guarding, no appreciable organomegaly Ext: no gross muscle atrophy, no edema, no contractures Neuro: CN II-XI grossly intact, no focal neuro deficits Psych: Alert, oriented, appropriate affect - Labs CBC & Chem 7: 01/30/22 17:00 01/30/22 17:00 Labs: Abnormal Lab Results - Last 24 Hours (Table) 01/30/22 01/31/22 Range/Units 17:00 09:12 APTT 48.7 H (22.0-30.0) sec BUN 26 H (9-20) mg/dL Glucose 106 H (74-99) mg/dL Assessment and Plan Assessment: Assessment and plan: Newly diagnosed A. fib with RVR -Patient converted to normal sinus rhythm -Switch to by mouth liquids -Increase Toprol to 50 mg daily -Cardiology input appreciated -Cardiac monitoring -Echocardiogram -Normal TSH Coronary artery disease status post stent -Resume beta gracie aspirin -Patient still on Plavix to be addressed by cardiology -Continue with home meds DVT prophylaxis -Eliquis CODE STATUS: Full Code Discussed with: Patient
--- NOTE | 2022-01-31 14:00 | ECHOF ---
Referral Reason:afib MEASUREMENTS -------- HEIGHT: 180.3 cm WEIGHT: 90.7 kg BP: 117/79 RVIDd: 3.4 cm (< 3.3) IVSd: 1.3 cm (0.6 - 1.1) LVIDd: 5.7 cm (3.9 - 5.3) LVPWd: 1.3 cm (0.6 - 1.1) IVSs: 1.8 cm LVIDs: 4.1 cm LVPWs: 2.0 cm LA Diam: 4.1 cm (2.7 - 3.8) LAESV Index (A-L): 32.58 ml/m Ao Diam: 4.2 cm (2.0 - 3.7) AV Cusp: 2.1 cm (1.5 - 2.6) MV EXCURSION: 15.293 mm (> 18.000) MV EF SLOPE: 33 mm/s (70 - 150) EPSS: 2.5 cm MV E Jeremy: 0.39 m/s MV DecT: 251 ms MV A Jeremy: 0.81 m/s MV E/A Ratio: 0.48 AR PHT: 825 ms RAP: 5.00 mmHg RVSP: 26.20 mmHg FINDINGS -------- Sinus rhythm. This was a technically adequate study. The left ventricle is mildly dilated. There is mild concentric left ventricular hypertrophy. Over all left ventricular systolic function is mild-moderately impaired with, an EF between 40 - 45 %. B rik inferior LV wall motion is dyskinetic. Mid inferior LV wall motion is dyskinetic. Apical sep violet LV wall motion is hypokinetic. The right ventricle is mildly enlarged. LA is midly dilated 29-33ml/m2. The right atrium is normal in size. Interatrial and interventricular septum intact. Mild mitral regurgitation is present. Mild tricuspid regurgitation present. Right ventricular systolic pressure is normal at < 35 mmHg. Trace/mild (physiologic) pulmonic regurgitation. There is mild aortic regurgitation. The aortic root is dilated measuring 4.2cm. Normal inferior vena cava with normal inspiratory collapse consistent with estimated right atrial pre ssure of 5 mmHg. There is no pericardial effusion. CONCLUSIONS -------- 1. The left ventricle is mildly dilated. 2. There is mild concentric left ventricular hypertrophy. 3. Overall left ventricular systolic function is mild-moderately impaired with, an EF between 40 - 45 %. 4. Basal inferior LV wall motion is dyskinetic. 5. Mid inferior LV wall motion is dyskinetic. 6. Apical septum LV wall motion is hypokinetic. 7. The right ventricle is mildly enlarged. 8. LA is midly dilated 29-33ml/m2. 9. There is mild aortic regurgitation. 10. Mild mitral regurgitation is present. 11. Mild tricuspid regurgitation present. 12. Trace/mild (physiologic) pulmonic regurgitation. 13. The aortic root is dilated measuring 4.2cm. 14. There is no pericardial effusion. [facility]: Shobha Mazariegos RDCS
[2022-01-31 16:19] LABS: Chol/HDL Ratio 3.98 Ratio; LDL Cholesterol,Calculated 125.3 mg/dL (0.0-131.0)
[2022-02-01 00:18] LABS: Calcium 8.7 mg/dL (8.4-10.2); Magnesium 2.1 mg/dL (1.6-2.3); Potassium 4.6 mmol/L (3.5-5.1)
[2022-02-01] MEDS ORDERED: ALPRAZolam 0.25 MG TAB PO STA (03:57)
[2022-02-01] MEDS: PANTOPRAZOLE 40 MG TABLET PO SCH (04:19)
[2022-02-01 07:33] LABS: Basophils # (A) 0.1 k/uL (0-0.2); Basophils % (A) 1 %; Eosinophils # (A) 0.3 k/uL (0-0.7); Eosinophils % (A) 4 %; HGB 16.6 gm/dL (13.0-17.5); Lymphocytes # (A) 1.3 k/uL (1.0-4.8); Lymphocytes % (A) 15 %; MCH 30.2 pg (25.0-35.0); MCHC 31.9 g/dL (31.0-37.0); MCV 94.6 fL (80.0-100.0); Mean Platelet Volume 9.3; Monocytes # (A) 0.5 k/uL (0-1.0); Monocytes % (A) 6 %; Neutrophils # (A) 6.3 k/uL (1.3-7.7); Neutrophils % (A) 73 %; Platelet Count 172 k/uL (150-450); RBC 5.49 m/uL (4.30-5.90); RDW 14.1 % (11.5-15.5); WBC 8.6 k/uL (3.8-10.6)
[2022-02-01 07:38] LABS: Prothrombin Time 11.1 sec (9.0-12.0)
[2022-02-01 07:43] LABS: African American GFR (CKD) >90 (>60 ml/min/1.73 sqM); Anion Gap 8 mmol/L; Blood Urea Nitrogen 23 mg/dL (9-20); Calcium 9.1 mg/dL (8.4-10.2); Carbon Dioxide 23 mmol/L (22-30); Chloride 107 mmol/L (98-107); Glucose 104 mg/dL (74-99); Magnesium 2.2 mg/dL (1.6-2.3); Non-African American GFR(CKD) 82 (>60 ml/min/1.73 sqM); Potassium 4.7 mmol/L (3.5-5.1); Sodium 138 mmol/L (137-145)
[2022-02-01] MEDS: allopurinoL 300 MG TAB PO SCH (08:54)
[2022-02-01] MEDS: APIXABAN 5 MG TAB PO SCH ×2 (08:54→20:51)
[2022-02-01] MEDS: FLECAINIDE 50 MG TAB PO SCH (08:54)
[2022-02-01] MEDS: CLOPIDOGREL 75 MG TAB PO SCH (08:55)
[2022-02-01] MEDS: ASPIRIN 325 MG TAB PO SCH (08:55)
[2022-02-01] MEDS ORDERED: METOPROLOL SUCCINATE (ER) 50 MG TAB.ER.24H PO SCH (09:00)
--- NOTE | 2022-02-01 10:26 | P.PN ---
Subjective Progress Note Date: 02/01/22 HISTORY OF PRESENT ILLNESS This is a 76-year-old male patient of Dr. Murillo with past medical history of hyp ertension, valvular heart disease and hyperlipidemia, cardiomyopathy with known EF of 40% with moderate to severe mitral regurgitation. 24 hour Holter monitor in 2020 revealed paroxysmal atrial tachycardia and at that time, patient was started on metoprolol. 05/08/2021 patient underwent successful stenting of the first obtuse marginal branch of the left circumflex Patient was on Dr. Murillo on and had no complaints at that time. H yesterday, while patient was at the dentist office he had episode of lightheadedness and thought he was going to pass out. He was found have a blood pressure of 75/50. He states he's had episodes like this for months. He was in [place] where his dentist is located went to initially to the [facility] but due to a 5 hour wait to be seen, patient's drove him to [facility] for evaluation. EKG was atrial fibrillation at rate of 168 bpm Initial blood pressure 148/99 CBC was unremarkable. INR 1.0. Electrolytes normal. BUN 26 creatinine 0.82. Blood sugar 106. Magnesium 2.2. Liver function tests normal. Troponin negative 3. TSH 1.780. Chest x-ray reveals no acute cardiopulmonary disease 02/01: The patient is in a sinus rhythm with rate control this morning, unfortunately, patient had a run of 1 minute of V. tach last evening around 2 AM. We will discontinue Tikosyn but patient did receive his morning dose. Patient is adamant that he wants to go home despite recommendations to continue to monitor at least into the evening tonight. If patient does go home, recommend ekg monitor tech. Patient will need follow-up in the office and recommend either ablation or amiodarone. Patient should avoid flecainide in the future. PHYSICAL EXAMINATION Gen: This is a 86-year-old male. He is resting in chair and appears to be comfortable and in no acute distress. HEENT: Head is atraumatic, normocephalic. Pupils equal, round. Sclerae is anicteric. NECK: Supple. No JVD. No lymphadenopathy. No thyromegaly. LUNGS: Clear to auscultation. No wheezes or rhonchi. No intercostal retractions. HEART: Regular rate and rhythm. Systolic murmur. front desk monitor sinus rhythm running in the 70s ABDOMEN: Soft. Bowel sounds are present. No masses. No tenderness. EXTREMITIES: No pedal edema. No calf tenderness. NEUROLOGICAL: Patient is awake, alert and oriented x3. Cranial nerves 2 through 12 are grossly intact. ASSESSMENT A. fib with RVR, new diagnosis Nonsustained ventricular tachycardia History of paroxysmal atrial tachycardia Hypertension Hyperlipidemia Cardiomyopathy with EF of 40% Moderate to severe mitral regurgitation Coronary artery disease PLAN Continue patient on Toprol-XL 50 mg daily Continue patient on eliquis 5 mg twice daily Discontinue flecainide and monitor patient this evening for arrhythmias. Patient should not have flecainide in the future. If patient chooses to go home despite recommendations to stay, recommend cardiac monitoring and follow-up with Dr. Murillo regarding possible amiodarone or ablation if necessary in the future Thank you kindly for this consultation. Nurse practitioner note has been reviewed, I agree with documented findings and plan of care. Patient was seen and examined. Objective - Vital Signs Vital signs: Vital Signs Temp 97.8 F 02/01/22 04:00 Pulse 75 02/01/22 04:00 Resp 18 02/01/22 04:00 BP 130/88 02/01/22 04:00 Pulse Ox 95 02/01/22 04:00 Intake & Output 01/31/22 02/01/22 02/01/22 18:59 06:59 18:59 Intake Total 238 Balance 238 Weight 86.7 kg Intake: Oral 238 Other: # Voids 1 - Labs CBC & Chem 7: 02/01/22 07:16 02/01/22 07:16 Labs: Abnormal Lab Results - Last 24 Hours (Table) 01/31/22 01/31/22 01/31/22 Range/Units 09:12 09:12 23:56 APTT 48.7 H (22.0-30.0) sec Sodium 136 L (137-145) mmol/L BUN 26 H (9-20) mg/dL Glucose 107 H (74-99) mg/dL Cholesterol 201.00 H (0.00-200.00) mg/dL 02/01/22 Range/Units 07:16 APTT (22.0-30.0) sec Sodium (137-145) mmol/L BUN 23 H (9-20) mg/dL Glucose 104 H (74-99) mg/dL Cholesterol (0.00-200.00) mg/dL
--- NOTE | 2022-02-01 16:34 | P.PN ---
Subjective Progress Note Date: 02/01/22 History of Present Illness: H&P Date: 01/30/22 Patient is a 76-year-old male with a PMH of coronary artery disease status post 1 stent and gout who presented to the emergency room for palpitations and lightheadedness. The patient reports that over the past several years, he has had intermittent episodes of palpitations accompanied with lightheadedness usually lasting for a few seconds and resolving spontaneously. He reports having similar episode today which lasted for 3-5 minutes, which prompted him to come to the emergency room. 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 Murillo his manager multicultural in the office, during which an EKG was performed and was unremarkable. Notes that previously he was having an episode once weekly but over the past few weeks has been having episodes nearly daily and often multiple times a day. He reports feeling back to his baseline at the time of interview. He denied experiencing chest discomfort during any of these episodes. Reports occasional mild chest accompanied shortness of breath without nausea, or vomiting. Also denied fever, chills, cough, abdominal pain, diarrhea. EKG in the emergency room revealed A. fib with RVR at 168 bpm with repeat EKG showing sinus rhythm with PVCs at 75 bpm with Q waves in leads II, III, aVF, as well as V1 and V2. Chest x-ray was unremarkable. Laboratory evaluation was remarkable for troponin of 0.017. Interval history: 01/31 Patient was seen and examined at the bedside. He denies any chest pain or shortness of breath. He converted to normal sinus rhythm overnight. Cardizem drip has been turned off 02/01 patient was seen examined at the bedside. He denies any chest pain or shortness of breath. Patient was started on flecainide overnight and he developed nonsustained V. tach. Cardiology discontinued flecainide and was to give the patient another 24 hours to monitor for arrhythmia. Otherwise no acute changes overnight Objective - Vital Signs Vital signs: Vital Signs Temp 97.4 F L 02/01/22 12:00 Pulse 65 02/01/22 14:00 Resp 14 02/01/22 14:00 BP 120/76 02/01/22 12:00 Pulse Ox 94 L 02/01/22 12:00 Intake & Output 04/09/22 04/10/22 04/10/22 18:59 06:59 18:59 Intake Total 238 Balance 238 Weight 86.7 kg 86.4 kg Intake: Oral 238 Other: Voiding Method Toilet # Voids 1 2 - Exam General: non toxic, no distress, appears at stated age Derm: warm, dry Head: atraumatic, normocephalic, symmetric Eyes: EOMI, no lid lag, anicteric sclera Mouth: no lip lesion, mucus membranes moist Cardiovascular: S1S2 reg, no murmur, positive posterior tibial pulse bilateral, Lungs: CTA bilateral, no rhonchi, no rales , no accessory muscle use Abdominal: soft, nontender to palpation, no guarding, no appreciable organomegaly Ext: no gross muscle atrophy, no edema, no contractures Neuro: CN II-XI grossly intact, no focal neuro deficits Psych: Alert, oriented, appropriate affect - Labs CBC & Chem 7: 02/01/22 07:16 02/01/22 07:16 Labs: Abnormal Lab Results - Last 24 Hours (Table) 01/31/22 02/01/22 Range/Units 23:56 07:16 Sodium 136 L (137-145) mmol/L BUN 26 H 23 H (9-20) mg/dL Glucose 107 H 104 H (74-99) mg/dL Assessment and Plan Assessment: Assessment and plan: Newly diagnosed A. fib with RVR -Patient converted to normal sinus rhythm -Switch to by mouth liquids -Increase Toprol to 50 mg daily -Cardiology input appreciated -Cardiac monitoring -Echocardiogram -Normal TSH Nonsustained V. tach -Could be secondary to flecainide which discontinued by cardiology -Continue to monitor for another 24 hours Coronary artery disease status post stent -Resume beta gracie aspirin -Patient still on Plavix to be addressed by cardiology -Continue with home meds DVT prophylaxis -Eliquis CODE STATUS: Full Code Discussed with: Patient
[2022-02-01] MEDS ORDERED: ALPRAZolam 0.25 MG TAB PO PRN (16:52)
[2022-02-01] MEDS ORDERED: DEXTROSE 5% IN WATER 100 ML with AMIODARONE 150 MG IV ONE (17:20)
[2022-02-01] MEDS ORDERED: AMIODARONE 360 MG in DEXTROSE 5% IN WATER 200 ML IV ONE ×2 (17:30)
[2022-02-01] MEDS: METOPROLOL SUCCINATE (ER) 25 MG TAB.ER.24H PO SCH (20:51)
[2022-02-01] MEDS ORDERED: AMIODARONE 450 MG in DEXTROSE 5% IN WATER 250 ML IV SCH ×2 (23:30)
[2022-02-02] MEDS: PANTOPRAZOLE 40 MG TABLET PO SCH (06:31)
[2022-02-02 07:41] LABS: Calcium 9.3 mg/dL (8.4-10.2); Magnesium 2.2 mg/dL (1.6-2.3); Potassium 4.8 mmol/L (3.5-5.1)
[2022-02-02 07:42] LABS: Basophils # (A) 0.1 k/uL (0-0.2); Basophils % (A) 1 %; Eosinophils # (A) 0.3 k/uL (0-0.7); Eosinophils % (A) 3 %; HCT 51.8 % (39.0-53.0); HGB 16.9 gm/dL (13.0-17.5); Lymphocytes # (A) 1.2 k/uL (1.0-4.8); Lymphocytes % (A) 12 %; MCH 31.1 pg (25.0-35.0); MCHC 32.7 g/dL (31.0-37.0); MCV 95.4 fL (80.0-100.0); Mean Platelet Volume 9.3; Monocytes # (A) 0.6 k/uL (0-1.0); Monocytes % (A) 6 %; Neutrophils # (A) 7.6 k/uL (1.3-7.7); Neutrophils % (A) 77 %; Platelet Count 193 k/uL (150-450); RBC 5.43 m/uL (4.30-5.90); RDW 14.6 % (11.5-15.5); WBC 9.9 k/uL (3.8-10.6)
[2022-02-02] MEDS: METOPROLOL SUCCINATE (ER) 25 MG TAB.ER.24H PO SCH (09:16)
[2022-02-02] MEDS: APIXABAN 5 MG TAB PO SCH (09:16)
[2022-02-02] MEDS: allopurinoL 300 MG TAB PO SCH (09:16)
[2022-02-02] MEDS ORDERED: AMIODARONE 200 MG TAB PO SCH (09:30)
--- NOTE | 2022-02-02 12:10 | P.PN ---
Subjective HISTORY OF PRESENT ILLNESS This is a 76-year-old male patient of Dr. Murillo with past medical history of coronary artery disease, 05/08/2021 patient underwent successful stenting of the first obtuse marginal branch of the left circumflex, hypertension, valvular heart disease and hyperlipidemia, cardiomyopathy with known EF of 40% with moderate to severe mitral regurgitation. 24 hour Holter monitor in 2020 revealed paroxysmal atrial tachycardia and at that time, patient was started on metoprolol. Patient saw Dr. Murillo on and had no complaints at that time. 01/31/2022, while patient was at the dentist office he had episode of lightheadedness and thought he was going to pass out. He was found have a blood pressure of 75/50. He states he's had episodes like this for months. He was in [place] where his dentist is located went to initially to the [facility] but due to a 5 hour wait to be seen, patient's drove him to [facility] for evaluation. 02/01: The patient is in a sinus rhythm with rate control this morning, unfortunately, patient had a run of 1 minute of V. tach last evening around 2 AM. We will discontinue Tikosyn but patient did receive his morning dose. Patient is adamant that he wants to go home despite recommendations to continue to monitor at least into the evening tonight. If patient does go home, recommend campus monitor. Patient will need follow-up in the office and recommend either ablation or amiodarone. Patient should avoid flecainide in the future. 02/02/2022 Patient seen and examined at bedside, no acute distress. He denies any chest pain or shortness of breath. No acute events. Telemetry reviewed, patient in sinus mechanism HR 60s-70s. Echocardiogram reveals EF of 40-45% with mild concentric left hypertrophy, LV hypokinetic, mild aortic regurgitation, mild mitral regurgitation, mild tricuspid regurgitation, aortic root dilated 4.2. PHYSICAL EXAMINATION Gen: This is a 86-year-old male. He is resting in chair and appears to be comfortable and in no acute distress. GENERAL: Well-appearing, well-nourished and in no acute distress. NECK: Supple without JVD or thyromegaly. LUNGS: Breath sounds clear to auscultation bilaterally. Respiration equal and unlabored. No wheezes, rales or rhonchi. HEART: Regular rate and rhythm without murmurs, rubs or gallops. S1 and S2 heard. EXTREMITIES: Normal range of motion, no edema. No clubbing or cyanosis. P eripheral pulses intact. ASSESSMENT New onset paroxysmal Atrial fibrillation with RVR Nonsustained ventricular tachycardia History of paroxysmal atrial tachycardia Hypertension Hyperlipidemia Ischemic Cardiomyopathy with EF of 40% Moderate to severe mitral regurgitation Coronary artery disease s/p PCI to left circumflex 04/2021 PLAN Continue patient on Toprol-XL 50 mg BID Continue patient on eliquis 5 mg twice daily Transition to PO amiodarone 200mg TID for 7 days, 200mg BID for 7 days, then 200mg daily thereafter. From cardiology perspective, patient stable and discharged home and follow-up with Dr. Murillo regarding amiodarone or ablation if necessary in the future Nurse practitioner note has been reviewed, I agree with documented findings and plan of care. Patient was seen and examined. Objective - Vital Signs Vital signs: Vital Signs Temp 98.0 F 02/02/22 04:00 Pulse 70 02/02/22 04:00 Resp 18 02/02/22 04:00 BP 123/85 02/02/22 04:00 Pulse Ox 97 02/02/22 04:00 Intake & Output 02/01/22 02/02/22 02/02/22 18:59 06:59 18:59 Intake Total 118 120 Balance 118 120 Intake: Oral 118 120 Other: Voiding Method Toilet Toilet # Voids 2 1 - Labs CBC & Chem 7: 02/02/22 06:18 02/02/22 06:18 Labs: Abnormal Lab Results - Last 24 Hours (Table) 02/02/22 Range/Units 06:18 BUN 25 H (9-20) mg/dL Glucose 104 H (74-99) mg/dL
[2022-02-02 12:14] VITALS: RESP 16; TEMP 97.5
[2022-02-02 12:17] VITALS: BP 128/74; PULSE 70
--- NOTE | 2022-02-02 13:18 | P.DS ---
Providers Date of admission: 01/31/22 13:40 Attending physician: Benita Trivedi MD Consults: 01/30/22 19:21 Consult Physician Urgent Consulting Provider: [facility] Consult Reason/Comments: A. fib with rapid ventricular response Do you want consulting provider notified?: Yes Primary care physician: [facility] Course: History of Present Illness: H&P Date: 01/30/22 Patient is a 76-year-old male with a PMH of coronary artery disease status post 1 stent and gout who presented to the emergency room for palpitations and lightheadedness. The patient reports that over the past several years, he has had intermittent episodes of palpitations accompanied with lightheadedness usually lasting for a few seconds and resolving spontaneously. He reports having similar episode today which lasted for 3-5 minutes, which prompted him to come to the emergency room. 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 Murillo his sales mgr in the office, during which an EKG was performed and was unremarkable. Notes that previously he was having an episode once weekly but over the past few weeks has been having episodes nearly daily and often multiple times a day. He reports feeling back to his baseline at the time of interview. He denied experiencing chest discomfort during any of these episodes. Reports occasional mild chest accompanied shortness of breath without nausea, or vomiting. Also denied fever, chills, cough, abdominal pain, diarrhea. EKG in the emergency room revealed A. fib with RVR at 168 bpm with repeat EKG showing sinus rhythm with PVCs at 75 bpm with Q waves in leads II, III, aVF, as well as V1 and V2. Chest x-ray was unremarkable. Laboratory evaluation was remarkable for troponin of 0.017. Detailed the problem list: Newly diagnosed A. fib with RVR -Patient converted to normal sinus rhythm -Switch to by mouth liquids -Cardiology changed his Toprol to 25 mg twice daily -Cardiology input appreciated -Normal TSH Nonsustained V. tach -Could be secondary to flecainide which discontinued by cardiology -Cardiology started the patient on amiodarone orally Ischemic Cardiomyopathy with EF of 40% Coronary artery disease status post stent -Coronary artery disease s/p PCI to left circumflex 04/2021 -Resume beta gracie aspirin -Cardiology recommended to discontinue Plavix on discharge Dyslipidemia -Resume statins Hypertension -Controlled Moderate to severe mitral regurgitation Patient was cleared for discharge per cardiology Physical examination discharge: General: non toxic, no distress, appears at stated age Derm: warm, dry Head: atraumatic, normocephalic, symmetric Eyes: EOMI, no lid lag, anicteric sclera Mouth: no lip lesion, mucus membranes moist Cardiovascular: S1S2 reg, no murmur, positive posterior tibial pulse bilateral, Lungs: CTA bilateral, no rhonchi, no rales , no accessory muscle use Abdominal: soft, nontender to palpation, no guarding, no appreciable organomegaly Ext: no gross muscle atrophy, no edema, no contractures Neuro: CN II-XI grossly intact, no focal neuro deficits Psych: Alert, oriented, appropriate affect Plan - Discharge Summary New Discharge Prescriptions: New Metoprolol Succinate (ER) [Toprol XL] 25 mg PO BID 30 Days #60 Amiodarone [Cordarone] 200 mg PO TID 60 Days #120 tab Apixaban [Eliquis] 5 mg PO BID 30 Days #60 tab Continue Zinc 50 mg PO DAILY Ascorbic Acid [Vitamin C] 1,000 mg PO DAILY Allopurinol [Zyloprim] 300 mg PO DAILY Pantoprazole [Protonix] 40 mg PO DAILY Cholecalciferol [Vitamin D3 (25 Mcg = 1000 Iu)] 25 mcg PO DAILY Aspirin EC [Ecotrin Low Dose] 81 mg PO DAILY Discontinued Metoprolol Succinate [Toprol XL] 25 mg PO [id number] Clopidogrel [Plavix] 75 mg PO DAILY #90 tab methylPREDNISolone [Medrol Dose Pack] See Taper PO DIRECTED Discharge Medication List Zinc 50 mg PO DAILY 07/06/19 [History] Allopurinol [Zyloprim] 300 mg PO DAILY 05/07/21 [History] Ascorbic Acid [Vitamin C] 1,000 mg PO DAILY 05/07/21 [History] Aspirin EC [Ecotrin Low Dose] 81 mg PO DAILY 01/30/22 [History] Cholecalciferol [Vitamin D3 (25 Mcg = 1000 Iu)] 25 mcg PO DAILY 01/30/22 [History] Pantoprazole [Protonix] 40 mg PO DAILY 01/30/22 [History] Amiodarone [Cordarone] 200 mg PO TID 60 Days #120 tab 02/02/22 [Rx] Apixaban [Eliquis] 5 mg PO BID 30 Days #60 tab 02/02/22 [Rx] Metoprolol Succinate (ER) [Toprol XL] 25 mg PO BID 30 Days #60 02/02/22 [Rx] Follow up Appointment(s)/Referral(s): Rajat Murillo MD [STAFF PHYSICIAN] - 1 Week Selin Morocho MD [STAFF PHYSICIAN] - 1-2 days Patient Instructions/Handouts: Amiodarone (By mouth), Apixaban (By mouth), A- fib (Atrial Fibrillation) (ED) Activity/Diet/Wound Care/Special Instructions: Amiodarone Taper Instructions: Please take 200mg Three times a day 02/02/22-02/08/22 Then Take 200mg twice a day 02/09/22-02/15/22 Then Take 200mg Daily starting 02/16/22 Further titration and changes per your sales mgr, Dr. Murillo. Discharge Disposition: HOME SELF-CARE
== END 2022-02-02 15:25 | disposition home or self-care (01) | DRG 310 ==
LOC: EC 15:12 → 3SCARD 19:21 → INTOOBSV 19:21 → 3SCARD 21:11 → OBSVTOIN 01-31 13:40
PROVIDERS: ADMIT Internal Medicine; ATTEND Internal Medicine
DX: I48.0 Paroxysmal atrial fibrillation (principal); I47.2 Ventricular tachycardia; E78.5 Hyperlipidemia, unspecified; I10 Essential (primary) hypertension; I25.10 Atherosclerotic heart disease of native coronary artery without angina pectoris; I08.3 Combined rheumatic disorders of mitral, aortic and tricuspid valves; M19.90 Unspecified osteoarthritis, unspecified site; I25.2 Old myocardial infarction; M10.9 Gout, unspecified; I25.5 Ischemic cardiomyopathy; I77.810 Thoracic aortic ectasia; I37.1 Nonrheumatic pulmonary valve insufficiency; I49.3 Ventricular premature depolarization; Z79.02 Long term (current) use of antithrombotics/antiplatelets; Z79.82 Long term (current) use of aspirin; Z79.899 Other long term (current) drug therapy; Z85.828 Personal history of other malignant neoplasm of skin; Z87.891 Personal history of nicotine dependence; Z95.5 Presence of coronary angioplasty implant and graft
CPT/HCPCS: 36415; 71046; 80048; 80053; 80061; 83735; 84443; 84484; 85025; 85610; 85730; 93005; 93306; 96374; 99284; 99291

== ENCOUNTER 2024-06-18 13:34 | Inpatient (IN) | payer MEDICARE ==
[2024-06-18] MEDS ORDERED: HEPARIN SODIUM 1,000 UN/ML (10ML VL) IV PRN (14:28)
[2024-06-18 14:53] LABS: Basophils % (A) 0 %; Eosinophils # (A) 0.3 k/uL (0-0.7); Eosinophils % (A) 3 %; HCT 40.9 % (39.0-53.0); HGB 13.2 gm/dL (13.0-17.5); Hypochromasia Slight; Lymphocytes # (A) 0.9 k/uL (1.0-4.8); Lymphocytes % (A) 8 %; MCH 29.6 pg (25.0-35.0); MCHC 32.2 g/dL (31.0-37.0); MCV 91.8 fL (80.0-100.0); Mean Platelet Volume 9.6; Monocytes # (A) 0.8 k/uL (0-1.0); Monocytes % (A) 8 %; Neutrophils # (A) 8.5 k/uL (1.3-7.7); Neutrophils % (A) 81 %; Platelet Count 155 k/uL (150-450); RBC 4.45 m/uL (4.30-5.90); RDW 15.1 % (11.5-15.5); WBC 10.5 k/uL (3.8-10.6)
[2024-06-18 15:11] LABS: Partial Thromboplastin Time 24.3 sec (22.0-30.0); Prothrombin Time 11.4 sec (10.0-12.5)
[2024-06-18 15:14] LABS: ALT 58 U/L (4-49); AST 39 U/L (17-59); African American GFR (CKD) >90 (>60 ml/min/1.73 sqM); Albumin 3.9 g/dL (3.5-5.0); Alkaline Phosphatase 58 U/L (38-126); Anion Gap 10 mmol/L; Blood Urea Nitrogen 35 mg/dL (9-20); Calcium 9.2 mg/dL (8.4-10.2); Carbon Dioxide 23 mmol/L (22-30); Chloride 108 mmol/L (98-107); Glucose 93 mg/dL (74-99); Magnesium 2.2 mg/dL (1.6-2.3); Non-African American GFR(CKD) 80 (>60 ml/min/1.73 sqM); Potassium 3.9 mmol/L (3.5-5.1); Sodium 141 mmol/L (137-145); Total Bilirubin 1.4 mg/dL (0.2-1.3); Total Protein 5.9 g/dL (6.3-8.2)
[2024-06-18 15:22] LABS: NT-Pro-B-Type Natriuretic Pept 5660 pg/mL
--- NOTE | 2024-06-18 15:23 | XR ---
EXAMINATION TYPE: XR chest 2V DATE OF EXAM: 06/18/2024 COMPARISON: 01/30/2022 HISTORY: 78 year-old male shortness of breath, difficulty breathing TECHNIQUE: PA and lateral views FINDINGS: Heart borderline enlarged. Increased diffuse interstitial densities without consolidation or pleural effusion. IMPRESSION: Borderline cardiomegaly with diffuse interstitial density. Correlate for CHF with pulmonary vascular congestion. Atypical pneumonias would be an alternative consideration.
--- NOTE | 2024-06-18 15:28 | ED ---
General Adult HPI - General Chief complaint: Recheck/Abnormal Lab/Rx Stated complaint: Blood clot-sent by PCP Time Seen by Provider: 06/18/24 14:20 Source: patient, RN notes reviewed, old records reviewed Mode of arrival: ambulatory Limitations: no limitations - History of Present Illness Initial comments: Patient is an 78-year-old male who presents emergency department complaining of blood clot in his lung. Patient had a CT PE done on June 14 at an outpatient and [facility] center. Was notified yesterday that patient has blood clots in bilateral lungs. They do that the report on his phone however they do not have any physical copy of the imaging or physical copy of the report. Patient does have a history of atrial fibrillation, CHF, acid reflux, CAD. Is no longer on blood thinners due to nosebleed issues 2 years ago. Denies any significant shortness of breath, chest pain. Endorses lower extremity edema. The lower extremity edema has been getting worse over the last few weeks. No significant cough or shortness of breath. Patient states originally got the CT due to falling a few weeks ago and ending up with right sided chest discomfort. X-rays were negative. Ended up getting CT imaging which showed the incidental finding of the PEs. Presents for further evaluation at this time. - Related Data Home Medications Medication Instructions Recorded Confirmed Amiodarone HCl [Pacerone] 100 mg PO DAILY 06/18/24 06/18/24 Azelastine HCl 1 spray EA NOSTRIL BID 06/18/24 06/18/24 Ezetimibe [Zetia] 10 mg PO DAILY 06/18/24 06/18/24 allopurinoL [Zyloprim] 300 mg PO DAILY 06/18/24 06/18/24 amLODIPine [Norvasc] 2.5 mg PO DAILY 06/18/24 06/18/24 Previous Rx's Medication Instructions Recorded Metoprolol Succinate (ER) [Toprol 25 mg PO BID 30 Days #60 02/02/22 XL] Allergies Allergy/AdvReac Type Severity Reaction Status Date / Time No Known Allergies Allergy Verified 06/18/24 16:47 Review of Systems ROS Statement: Those systems with pertinent positive or pertinent negative responses have been documented in the HPI. Review of Systems: CONST: Denies fever EYES: Denies blurry vision ENT: Denies nasal congestion C/V: Denies Chest pain RESP: Denies shortness of breath GI: Denies abdominal pain : Denies dysuria SKIN: Denies rash. MSK: Denies joint pain. NEURO: Denies headache ROS Other: All systems not noted in ROS Statement are negative. Past Medical History Past Medical History: Cancer, GERD/Reflux, Myocardial Infarction ([place]), Osteoarthritis ([place]) Additional Past Medical History / Comment(s): mitral valve leak, murmer, gout, skin cancer Last Myocardial Infarction Date:: unknown History of Any Multi-Drug Resistant Organisms: None Reported Past Surgical History: Orthopedic Surgery Additional Past Surgical History / Comment(s): RIGHT KNEE ARTHROSCOPY, vidal cataracts Past Anesthesia/Blood Transfusion Reactions: No Reported Reaction Past Psychological History: No Psychological Hx Reported Smoking Status: Former smoker Past Alcohol Use History: None Reported Past Drug Use History: None Reported - Past Family History Father Family Medical History: Cancer Additional Family Medical History / Comment(s): brain tumor Mother Family Medical History: Chest Pain / Angina General Exam - General Exam Comments Initial Comments: General: [Appears in no acute distress.] HEAD: [Normal with no signs of head trauma.] EYES: [PERRLA, EOMI, conjunctiva normal, no discharge.] ENT: [Hearing grossly intact, normal oropharynx.] RESPIRATORY: [Clear breath sounds bilaterally. No wheezes, rales, or rhonchi.] No hypoxia. No increased work of breathing. C/V: [Irregular rate and rhythm. S1 and S2 auscultated, mild to moderate bilateral symmetrical pitting edema lower extremities, peripheral pulses 2+ and intact throughout] ABD: [Abd is soft, nontender, nondistended] EXT: [Normal range of motion, no obvious deformity] SKIN: [No rashes or lesions observed on exposed skin.] NEURO: Alert and oriented x 4. Limitations: no limitations Course Vital Signs 06/18/24 06/18/24 06/18/24 13:42 16:18 17:46 Temperature 98 F Pulse Rate 75 108 H 106 H Respiratory 16 20 18 Rate Blood Pressure 132/81 116/86 121/88 O2 Sat by Pulse 94 L 97 94 L Oximetry Medical Decision Making - Medical Decision Making Was pt. sent in by a medical professional or institution (, PA, JUNIOR ACCOUNTANT BOOKKEEPER, urgent care, hospital, or long term...) When possible be specific @ -No Did you speak to anyone other than the patient for history (EMS, parent, family, police, friend...)? What history was obtained from this source @ -No Did you review nursing and triage notes (agree or disagree)? Why? @ -I reviewed and agree with nursing and triage notes Were old charts reviewed (outside hosp., previous admission, EMS record, old EKG, old radiological studies, urgent care reports/EKG's, long term records)? Report findings @ -Reviewed radiology report from outpatient imaging center on the patient's cell phone which shows that patient has a left upper lobe pulmonary embolism and right lower lobe pulmonary embolism with a generalized enlarged heart. No mention of right heart strain on CT. Report is from 06/16/2024. Differential Diagnosis (chest pain, altered mental status, abdominal pain women, abdominal pain men, vaginal bleeding, weakness, fever, dyspnea, syncope, hea dache, dizziness, GI bleed, back pain, seizure, CVA, palpatations, mental health, musculoskeletal)? @ -PE, right heart strain, CHF, atrial fibrillation. This list is not all inclusive. EKG interpreted by me (3pts min.). @ -As above X-rays interpreted by me (1pt min.). @ -Chest x-ray reveals bilateral pulmonary vascular congestion. CT interpreted by me (1pt min.). @ -None done U/S interpreted by me (1pt. min.). @ -Bilateral lower extremity venous duplex ultrasound negative for DVT. What testing was considered but not performed or refused? (CT, X-rays, U/S, labs)? Why? @ -None What meds were considered but not given or refused? Why? @ -None Did you discuss the management of the patient with other professionals (professionals i.e. , PA, JUNIOR ACCOUNTANT BOOKKEEPER, lab, RT, psych nurse, social and human services assistant, church organist, teacher, education officer, complex case manager)? Give summary @ -Discussed with on-call professor of graphic design, Dr. Fierro who was in agreement the plan for admission to stepdown. In agreement with echo and treatment of suspected CHF for the patient. I spoke with the admitting physician, Dr. Santoro of [facility] who accepted the admission. Was smoking cessation discussed for >3mins.? @ -No Was critical care preformed (if so, how long)? @ -Yes, 33 minutes. Were there social determinants of health that impacted care today? How? (Homelessness, low income, unemployed, alcoholism, drug addiction, transporta tion, low edu. Level, literacy, decrease access to med. care, fpc, rehab)? @ -No Was there de-escalation of care discussed even if they declined (Discuss DNR or withdrawal of care, Hospice)? DNR status @ -No What co-morbidities impacted this encounter? (DM, HTN, Smoking, COPD, CAD, Cancer, CVA, ARF, Chemo, Hep., AIDS, mental health diagnosis, sleep apnea, morbid obesity)? @ -A-fib, CHF Was patient admitted / discharged? Hospital course, mention meds given and route, prescriptions, significant lab abnormalities, going to OR and other pertinent info. @ -Patient was presenting for bilateral pulmonary embolism. We do not have access to the imaging however request was sent to the outpatient imaging center. They are currently closed today. Report is accessible via patient which does show that patient has left upper lobe PE and right lower lobe PE with no obvious evidence of right heart strain but generalized enlarged heart. Likely secondary to CHF. Patient also has CHF symptoms. We will obtain cardiopulmonary workup. Patient started on heparin therapy for PE. Lower extremity duplex is negative for DVT. Chest x-ray unremarkable. Vital signs are within acceptable limits with no significant hypoxia. Pulse ox is 94 to 98% on room air. Patient is in atrial fibrillation which is chronic for him. Vital signs otherwise within acceptable limits. Patient's laboratory studies are remarkable for D-dimer elevation of 8.5. Already has a known bilateral PE. Troponin is indeterminate at 0.015. BNP is elevated at 5660 in the setting of suspected CHF exacerbation as patient has been having progressively chronic worsening CHF symptoms over the last few weeks. Patient is only on 20 mg of Lasix at home. I discussed the results with the patient. Still asymptomatic in terms of difficulty in breathing and hypoxia. No evidence of right heart strain documented on the CT PE that was done outpatient. Patient does have an elevated BNP here however patient does have a history of CHF and clinically is presenting similar to CHF exacerbation. I did speak with the professor of graphic design Dr. Briggs and he was in agreement with this assessment that likely combination of CHF. He was in agreement with plan for heparin therapy for the PE. Was in agreement plan for admission to 3 S. Cardiology consulted. Vascular surgery is on-call for [facility] and they were consulted. Dr. Briggs of pulmonology also consulted. Patient started on IV Lasix. Will continue heparin. Echo ordered. I spoke with the admitting physician, Dr. Santoro of [facility] who accepted the admission. Undiagnosed new problem with uncertain prognosis? @ -No Drug Therapy requiring intensive monitoring for toxicity (Heparin, Nitro, Insulin, Cardizem)? @ -Heparin Were any procedures done? @ -No Diagnosis/symptom? @ -Bilateral pulmonary emboli, CHF exacerbation Acute, or Chronic, or Acute on Chronic? @ -Acute Uncomplicated (without systemic symptoms) or Complicated (systemic symptoms)? @ -Complicated Side effects of treatment? @ -No Exacerbation, Progression, or Severe Exacerbation? @ -No Poses a threat to life or bodily function? How? (Chest pain, [place], [place], pneumonia, PE, COPD, DKA, ARF, appy, cholecystitis, CVA, Diverticulitis, Homicidal, Suicidal, threat to staff... and all critical care pts) @ -Yes - Lab Data Result diagrams: 06/18/24 14:44 06/18/24 14:44 Lab Results 06/18/24 06/18/24 06/18/24 Range/Units 14:44 14:44 14:44 WBC 10.5 (3.8-10.6) k/uL RBC 4.45 (4.30-5.90) m/uL Hgb 13.2 (13.0-17.5) gm/dL Hct 40.9 (39.0-53.0) % MCV 91.8 (80.0-100.0) fL MCH 29.6 (25.0-35.0) pg MCHC 32.2 (31.0-37.0) g/dL RDW 15.1 (11.5-15.5) % Plt Count 155 (150-450) k/uL MPV 9.6 Neutrophils % 81 % Lymphocytes % 8 % Monocytes % 8 % Eosinophils % 3 % Basophils % 0 % Neutrophils # 8.5 H (1.3-7.7) k/uL Lymphocytes # 0.9 L (1.0-4.8) k/uL Monocytes # 0.8 (0-1.0) k/uL Eosinophils # 0.3 (0-0.7) k/uL Basophils # 0.0 (0-0.2) k/uL Hypochromasia Slight PT (10.0-12.5) sec INR (<1.2) APTT (22.0-30.0) sec D-Dimer (<0.60) mg/L FEU Sodium 141 (137-145) mmol/L Potassium 3.9 (3.5-5.1) mmol/L Chloride 108 H (98-107) mmol/L Carbon Dioxide 23 (22-30) mmol/L Anion Gap 10 mmol/L BUN 35 H (9-20) mg/dL Creatinine 0.90 (0.66-1.25) mg/dL Est GFR (CKD-EPI)AfAm >90 (>60 ml/min/1.73 sqM) Est GFR (CKD-EPI)NonAf 80 (>60 ml/min/1.73 sqM) Glucose 93 (74-99) mg/dL Plasma Lactic Acid Zackary 1.3 (0.7-2.0) mmol/L Calcium 9.2 (8.4-10.2) mg/dL Magnesium 2.2 (1.6-2.3) mg/dL Total Bilirubin 1.4 H (0.2-1.3) mg/dL AST 39 (17-59) U/L ALT 58 H (4-49) U/L Alkaline Phosphatase 58 (38-126) U/L Troponin I (0.000-0.034) ng/mL NT-Pro-B Natriuret Pep 5660 pg/mL Total Protein 5.9 L (6.3-8.2) g/dL Albumin 3.9 (3.5-5.0) g/dL Urine Color Urine Appearance (Clear) Urine pH (5.0-8.0) Ur Specific [place] (1.001-1.035) Urine Protein (Negative) Urine Glucose (UA) (Negative) Urine Ketones (Negative) Urine Blood (Negative) Urine Nitrite (Negative) Urine Bilirubin (Negative) Urine Urobilinogen (<2.0) mg/dL Ur Leukocyte Esterase (Negative) 06/18/24 06/18/24 06/18/24 Range/Units 14:44 14:44 16:20 WBC (3.8-10.6) k/uL RBC (4.30-5.90) m/uL Hgb (13.0-17.5) gm/dL Hct (39.0-53.0) % MCV (80.0-100.0) fL MCH (25.0-35.0) pg MCHC (31.0-37.0) g/dL RDW (11.5-15.5) % Plt Count (150-450) k/uL MPV Neutrophils % % Lymphocytes % % Monocytes % % Eosinophils % % Basophils % % Neutrophils # (1.3-7.7) k/uL Lymphocytes # (1.0-4.8) k/uL Monocytes # (0-1.0) k/uL Eosinophils # (0-0.7) k/uL Basophils # (0-0.2) k/uL Hypochromasia PT 11.4 (10.0-12.5) sec INR 1.0 (<1.2) APTT 24.3 (22.0-30.0) sec D-Dimer 8.50 H (<0.60) mg/L FEU Sodium (137-145) mmol/L Potassium (3.5-5.1) mmol/L Chloride (98-107) mmol/L Carbon Dioxide (22-30) mmol/L Anion Gap mmol/L BUN (9-20) mg/dL Creatinine (0.66-1.25) mg/dL Est GFR (CKD-EPI)AfAm (>60 ml/min/1.73 sqM) Est GFR (CKD-EPI)NonAf (>60 ml/min/1.73 sqM) Glucose (74-99) mg/dL Plasma Lactic Acid Zackary (0.7-2.0) mmol/L Calcium (8.4-10.2) mg/dL Magnesium (1.6-2.3) mg/dL Total Bilirubin (0.2-1.3) mg/dL AST (17-59) U/L ALT (4-49) U/L Alkaline Phosphatase (38-126) U/L Troponin I 0.015 (0.000-0.034) ng/mL NT-Pro-B Natriuret Pep pg/mL Total Protein (6.3-8.2) g/dL Albumin (3.5-5.0) g/dL Urine Color Light Yellow Urine Appearance Clear (Clear) Urine pH 5.0 (5.0-8.0) Ur Specific [place] 1.014 (1.001-1.035) Urine Protein Negative (Negative) Urine Glucose (UA) Negative (Negative) Urine Ketones Negative (Negative) Urine Blood Negative (Negative) Urine Nitrite Negative (Negative) Urine Bilirubin Negative (Negative) Urine Urobilinogen <2.0 (<2.0) mg/dL Ur Leukocyte Esterase Negative (Negative) - EKG Data -: EKG Interpreted by Me EKG Comments: 12-lead Electrocardiogram Interpretation Note EKG was reviewed and interpreted by myself. 12-lead ECG performed at 1355 is interpreted by me as revealing atrial fibrillation at a rate of 97 beats per minute. Left axis deviation. QRS duration is 118 ms, QTc is 426 ms. ABC present.. There were no ST or T wave abnormalities to suggest myocardial ischemia or injury. R wave progression across the precordium was satisfactory. By my interpretation this EKG is non-diagnostic for acute ischemia. Critical Care Time Critical Care Time: Yes Total Critical Care Time: 33 Disposition Clinical Impression: Pulmonary embolism, CHF (congestive heart failure), Afib Disposition: ADMITTED IP TO THIS HOSP Condition: Stable Is patient prescribed a controlled substance at d/c from ED?: No Time of Disposition: 16:15
[2024-06-18] MEDS: HEPARIN SODIUM 1,000 UN/ML (10ML VL) IV ONE (15:42)
[2024-06-18] MEDS: HEPARIN SOD,PORK IN 0.45% NACL 25,000 UNIT in 0.45% NACL 1 250ML.BAG IV SCH (15:44)
--- NOTE | 2024-06-18 15:54 | US ---
EXAMINATION TYPE: US venous doppler duplex LE BI DATE OF EXAM: 06/18/2024 3:33 PM COMPARISON: NONE CLINICAL INDICATION: Male, 78 years old with history of eval for DVT; Leg swelling, pt states he was told he has a PE from recent outside CT SIDE PERFORMED: Bilateral TECHNIQUE: The lower extremity deep venous system is examined utilizing real time linear array sonog saumya with graded compression, doppler sonography and color-flow sonography. VESSELS IMAGED: Common Femoral Vein Deep Femoral Vein Greater Saphenous Vein * Femoral Vein Popliteal Vein Small Saphenous Vein * Proximal Calf Veins (* superficial vessels) Right Leg: Negative for DVT Left Leg: Negative for DVT IMPRESSION: 1. No evidence for DVT within the bilateral lower extremities imaged from the groin to the upper cast . 2. A subcutaneous soft tissue edema at the knee and calves.
[2024-06-18] MEDS: FUROSEMIDE 10 MG/ML 4 ML VIAL IV STA (16:20)
[2024-06-18] MEDS ORDERED: NALOXONE 0.4 MG/ML 1 ML VIAL IV PRN (16:27)
[2024-06-18 16:29] LABS: Appearance,Urine Clear (Clear); Bilirubin,Urine Negative (Negative); Blood,Urine Negative (Negative); Color,Urine Light Yellow; Glucose,Urine (UA) Negative (Negative); Ketones,Urine Negative (Negative); Leukocyte Esterase,Urine Negative (Negative); Nitrite,Urine Negative (Negative); Protein,Urine Negative (Negative); Specific Gravity,Urine 1.014 (1.001-1.035); Urobilinogen,Urine <2.0 mg/dL (<2.0)
--- NOTE | 2024-06-18 17:14 | P.HPIM ---
History of Present Illness H&P Date: 06/18/24 Patient is a 78-year-old male with history of atrial fibrillation, hypertension, CAD status post stent gout presenting after found to have PE on outpatient CT scan. He claims that he had chest pain, nonproductive cough, shortness of breath for the last couple of weeks, and had a chest x-ray done by his primary. Chest x-ray showed findings concerning for possible pneumonia, patient was t reated with antibiotics, no resolution in symptoms. He later had a CT which showed findings concerning for pulmonary embolism. He was then sent to the hospital. He claims that he has increased lower extremity edema bilaterally, he sleeps in a recliner, denies any PND, has exertional shortness of breath, denies any chest pain. He denies any palpitations. Currently not taking any anticoagulation. Denies any fevers, chills, urinary, bowel complaints. In the ED, temperature was 98, pulse 75, respiratory rate 16, blood pressure 132/81, saturating at 94% on room air. WBC 10.5, hemoglobin 13.2, platelet 155, D-dimer 8.5, creatinine 0.9, proBNP 5600, troponin 0.015, T. bili 1.4. Chest x-ray independently interpreted, some interstitial opacities noted. Venous Doppler lower extremity negative for DVTs. Patient started on heparin drip. Was also given 40 mg IV Lasix. Admitted for PE, and mild CHF exacerbation. Pertinent positives and negatives as discussed in HPI, a complete review of systems was performed and all other systems are negative. Patient seen and examined at bedside. Vital signs reviewed General: nontoxic, no distress, appears at stated age Derm: warm, dry Head: atraumatic, normocephalic, symmetric Eyes: EOMI, no lid lag, anicteric sclera, pupils equal round reactive to light ENT: Nose and ears atraumatic Neck: No thyromegaly, supple Mouth: no lip lesion, mucus membranes moist Cardiovascular: S1S2 irregular, tachycardic no murmur, 2+ pitting edema up to distal knees Lungs: clear to auscultation bilateral, no rhonchi, no rales, no wheeze, no accessory muscle use Abdominal: soft, nontender to palpation, no guarding, no appreciable organomegaly Ext: no gross muscle atrophy, muscle strength muscle strength 5 out of 5 in all 4 extremities, no contractures Neuro: CN II-XII grossly intact Psych: Alert, oriented, appropriate affect Assessment/Plan: Active: Acute non- massive PE, likely unprovoked Mild acute CHF exacerbation, unknown EF, previously known EF was 40 to 45% History of CAD status post stent -Outpatient CT report needed -Continue heparin drip, monitor APTT, daily CBC -Consider switching to oral anticoagulation -Was given 40 of IV Lasix in the ER -Continue IV Lasix 40 mg every 12 hours, monitor electrolytes and I's and O's, daily weights -Cardiology and pulmonology, vascular surgery consulted -Lower extremity venous Doppler negative for DVT -Echocardiogram pending Atrial fibrillation with RVR -Increase metoprolol to 50 twice daily, First dose now -Continue amiodarone 100 mg daily Gout -Allopurinol 300 mg daily Dyslipidemia -Continue ezetimibe 10 mg daily The patient is admitted with an anticipated greater than 2 midnight stay as inpatient status for evaluation of PE and CHF. Surrogate decision-maker: Spouse CODE STATUS: Full code DVT prophylaxis: Heparin drip Anticipated discharge date: Pending clinical course Anticipated discharge place: Pending clinical course A total of 55 minutes was spent on the care of this complex patient more than 50% of the time was spent in counseling and care coordination. Past Medical History Past Medical History: Cancer, GERD/Reflux, Myocardial Infarction ([place]), Osteoarthritis (OA) Additional Past Medical History / Comment(s): mitral valve leak, murmer, gout, skin cancer Last Myocardial Infarction Date:: unknown History of Any Multi-Drug Resistant Organisms: None Reported Past Surgical History: Orthopedic Surgery Additional Past Surgical History / Comment(s): RIGHT KNEE ARTHROSCOPY, vidal cataracts Past Anesthesia/Blood Transfusion Reactions: No Reported Reaction Past Psychological History: No Psychological Hx Reported Smoking Status: Former smoker Past Alcohol Use History: None Reported Past Drug Use History: None Reported - Past Family History Father Family Medical History: Cancer Additional Family Medical History / Comment(s): brain tumor Medications and Allergies Home Medications Medication Instructions Recorded Confirmed Type Metoprolol Succinate (ER) [Toprol 25 mg PO BID 30 Days #60 02/02/22 06/18/24 Rx XL] Amiodarone HCl [Pacerone] 100 mg PO DAILY 06/18/24 06/18/24 History Azelastine HCl 1 spray EA NOSTRIL BID 06/18/24 06/18/24 History Ezetimibe [Zetia] 10 mg PO DAILY 06/18/24 06/18/24 History allopurinoL [Zyloprim] 300 mg PO DAILY 06/18/24 06/18/24 History amLODIPine [Norvasc] 2.5 mg PO DAILY 06/18/24 06/18/24 History Allergies Allergy/AdvReac Type Severity Reaction Status Date / Time No Known Allergies Allergy Verified 06/18/24 16:47 Physical Exam Vitals: Vital Signs Temp Pulse Resp BP Pulse Ox 06/18/24 16:18 108 H 20 116/86 97 06/18/24 13:42 98 F 75 16 132/81 94 L Intake and Output 06/18/24 06/18/24 06/18/24 06:59 14:59 22:59 Other: Weight 94.347 kg Results CBC & Chem 7: 06/18/24 14:44 06/18/24 14:44 Labs: Abnormal Lab Results - Last 24 Hours (Table) 06/18/24 06/18/24 06/18/24 Range/Units 14:44 14:44 14:44 Neutrophils # 8.5 H (1.3-7.7) k/uL Lymphocytes # 0.9 L (1.0-4.8) k/uL D-Dimer 8.50 H (<0.60) mg/L FEU Chloride 108 H (98-107) mmol/L BUN 35 H (9-20) mg/dL Total Bilirubin 1.4 H (0.2-1.3) mg/dL ALT 58 H (4-49) U/L Total Protein 5.9 L (6.3-8.2) g/dL
[2024-06-18] MEDS: METOPROLOL SUCCINATE (ER) 25 MG TAB.ER.24H PO STA (18:19)
[2024-06-18] MEDS: METOPROLOL SUCCINATE (ER) 50 MG TAB.ER.24H PO SCH (21:09)
[2024-06-18] MEDS: AZELASTINE 137MCG/SPRAY EA NOSTRIL SCH (21:09)
--- NOTE | 2024-06-19 03:13 | P.CNPUL ---
History of Present Illness Consult date: 06/19/24 Requesting physician: Justin Ordonez Reason for consult: pulmonary embolism Chief complaint: Directed to the emergency department by PCP History of present illness: Patient is a 78-year-old white male with past medical history significant for atrial fibrillation, valvular heart disease, coronary artery disease with previous stent, hypertension, hyperlipidemia, and remote history of tobacco use. Patient states that he fell approximately 1 month ago. He was told that he had some rib fractures. Was still having intermittent shortness of breath and occasional nonproductive cough. His primary care provider, recommended that he have a CAT scan of his chest done. This was reportedly done on May at [facility] location on [address] Reportedly, he received a ph one call yesterday notifying him of blood clots in his lungs on both sides, and was directed to the nearest emergency department. We do not have access to this image or report at this time; however, we are working on obtaining this documentation. Patient is currently sitting up at the edge of the bed, on room air, no acute respiratory distress. He is on a heparin infusion per protocol. Hemodynamics are stable. Not requiring vasopressors. He denies any significant shortness of breath, chest pain, hemoptysis or sputum production, fever, heart palpitations, lightheadedness or syncopal events. He has had increased lower extremity swelling, greater so on the right. Venous Doppler is pending. Denies any previous history of DVT/PE. No recent travel, surgeries, hospitalizations. He was previously on Eliquis, for his chronic atrial fibrillation. This medication has previously been discontinued, due to frequent nosebleeds. Chest x-ray shows stable cardiac silhouette and prominent interstitial pattern. CBC and BMP unremarkable. D-dimer 8.5. Troponin 0.015, 0.022, and 0.017 respectiv tricia. NT proBNP elevated at 5660. EKG consistent with atrial fibrillation with controlled ventricular response and frequent unifocal PVCs. Echocardiogram to assess for right-sided heart strain is pending. Review of Systems REVIEW OF SYSTEMS: CONSTITUTIONAL: Denies any recent significant weight loss or weight gain. EYES: Denies change in vision. EARS, NOSE, MOUTH, THROAT: Denies headaches, denies sore throat. CARDIOVASCULAR: See HPI RESPIRATORY: See HPI GASTROINTESTINAL: Denies change in appetite, abdominal pain, nausea and vomiting, or diarrhea GENITOURINARY: Denies hematuria, denies infections. MUSKULOSKELETAL: Denies pain, denies swelling. INTEGUMENTARY: Denies rash, denies eczema. NEUROLOGICAL: Denies recent memory loss, no recent seizure activity. PSYCHIATRIC: Denies anxiety, denies depression. HEMATOLOGIC/LYMPHATIC: Denies anemia, denies enlarged lymph node Past Medical History Past Medical History: Cancer, GERD/Reflux, Myocardial Infarction ([place]), Osteoarthritis (OA) Additional Past Medical History / Comment(s): mitral valve leak, murmer, gout, skin cancer Last Myocardial Infarction Date:: unknown History of Any Multi-Drug Resistant Organisms: None Reported Past Surgical History: Orthopedic Surgery Additional Past Surgical History / Comment(s): RIGHT KNEE ARTHROSCOPY, vidal catar acts Past Anesthesia/Blood Transfusion Reactions: No Reported Reaction Past Psychological History: No Psychological Hx Reported Smoking Status: Former smoker Past Alcohol Use History: None Reported Past Drug Use History: None Reported - Past Family History Father Family Medical History: Cancer Additional Family Medical History / Comment(s): brain tumor Mother Family Medical History: Chest Pain / Angina Medications and Allergies Home Medications Medication Instructions Recorded Confirmed Type Metoprolol Succinate (ER) [Toprol 25 mg PO BID 30 Days #60 02/02/22 06/18/24 Rx XL] Amiodarone HCl [Pacerone] 100 mg PO DAILY 06/18/24 06/18/24 History Azelastine HCl 1 spray EA NOSTRIL BID 06/18/24 06/18/24 History Ezetimibe [Zetia] 10 mg PO DAILY 06/18/24 06/18/24 History allopurinoL [Zyloprim] 300 mg PO DAILY 06/18/24 06/18/24 History amLODIPine [Norvasc] 2.5 mg PO DAILY 06/18/24 06/18/24 History Allergies Allergy/AdvReac Type Severity Reaction Status Date / Time No Known Allergies Allergy Verified 06/18/24 16:47 Physical Exam Vitals: Vital Signs Temp Pulse Pulse Resp BP BP Pulse Ox 06/18/24 23:30 103 H 18 121/85 96 06/18/24 20:45 97.6 F 100 18 126/87 91 L 06/18/24 18:20 69 18 120/82 93 L 06/18/24 17:46 106 H 18 121/88 94 L 06/18/24 16:18 108 H 20 116/86 97 06/18/24 13:42 98 F 75 16 132/81 94 L Intake and Output 06/18/24 06/18/24 06/19/24 14:59 22:59 06:59 Intake Total 104.439 0 Output Total 700 300 Balance -595.561 -300 Intake: Intake, IV Titration 104.439 0 Amount Heparin Sod,Pork in 0.45% 104.439 0 NaCl 25,000 unit In 0.45 % NaCl 1 250ml.bag @ 18 UNITS/KG/HR 16.982 mls/hr IV .[id number] PATSY Rx#: [id number] Output: Urine 700 300 Other: Voiding Method Toilet Toilet Urinal Urinal # Voids 1 Weight 94.347 kg 94.347 kg GENERAL EXAM: Alert, 78-year-old white male, sitting at the edge of the bed, comfortable in no apparent distress. HEAD: Normocephalic and atraumatic EYES: Normal reaction of pupils, equal size. NOSE: Clear with pink turbinates. THROAT: No erythema or exudates. NECK: No masses, no JVD. CHEST: No chest wall deformity. LUNGS: Equal air entry with no crackles, wheeze, rhonchi or dullness. On room air. No conversational dyspnea or accessory muscle use.. CVS: S1 and S2 normal with no audible murmur, irregular rhythm. No extra heart sounds ABDOMEN: No hepatosplenomegaly, active bowel sounds, no guarding or rigidity. SPINE: No scoliosis or deformity SKIN: Left nose crust CENTRAL NERVOUS SYSTEM: No focal deficits, tone is normal in all 4 extremities. EXTREMITIES: There is bilateral lower extremity pitting edema, greater on the right. No clubbing, or cyanosis. Peripheral pulses are intact. Results - Laboratory Findings CBC and BMP: 06/18/24 14:44 06/18/24 14:44 PT/INR, D-dimer PT 11.4 sec (10.0-12.5) 06/18/24 14:44 INR 1.0 (<1.2) 06/18/24 14:44 D-Dimer 8.50 mg/L FEU (<0.60) H 06/18/24 14:44 Abnormal lab findings: Abnormal Labs 06/18/24 06/18/24 06/18/24 14:44 14:44 14:44 Neutrophils # 8.5 H Lymphocytes # 0.9 L APTT D-Dimer 8.50 H Chloride 108 H BUN 35 H Total Bilirubin 1.4 H ALT 58 H Total Protein 5.9 L 06/18/24 20:29 Neutrophils # Lymphocytes # APTT 144.8 H* D-Dimer Chloride BUN Total Bilirubin ALT Total Protein - Diagnostic Findings Chest x-ray: image reviewed Assessment and Plan Assessment: Acute bilateral pulmonary embolism, reportedly diagnosed at outside facility, we are working on obtaining imaging/report. No obvious provoking factors. Currently on high intensity IV heparin infusion. Chronic atrial fibrillation, not currently on anticoagulation History of coronary artery disease with previous stent History of heart failure with reduced ejection fraction and valvular heart disease History of hyperlipidemia History of hypertension Remote history of tobacco use Plan: Currently on room air We are working on obtaining chest CTA images/results that were taken at outside facility In the meantime, continue on high intensity IV heparin infusion protocol. APTT per protocol Obtain transthoracic echocardiogram to assess for right-sided heart strain Venous Doppler of the lower extremities reportedly negative for DVT, personally the report is not available at this time Vascular surgery also consulted Hemodynamics are stable at this time, submassive PE We will continue to follow I have personally seen and examined the patient, performed the documentation and the assessment and plan as written. Number of minutes spent on the visit:20 Time with Patient: Greater than 30
[2024-06-19 07:03] LABS: Basophils % (A) 1 %; Eosinophils # (A) 0.2 k/uL (0-0.7); Eosinophils % (A) 3 %; HCT 42.8 % (39.0-53.0); HGB 13.9 gm/dL (13.0-17.5); Hypochromasia Slight; Lymphocytes # (A) 1.2 k/uL (1.0-4.8); Lymphocytes % (A) 16 %; MCH 30.1 pg (25.0-35.0); MCHC 32.5 g/dL (31.0-37.0); MCV 92.8 fL (80.0-100.0); Mean Platelet Volume 9.7; Monocytes # (A) 0.5 k/uL (0-1.0); Monocytes % (A) 7 %; Neutrophils # (A) 5.6 k/uL (1.3-7.7); Neutrophils % (A) 74 %; Platelet Count 146 k/uL (150-450); RBC 4.61 m/uL (4.30-5.90); RDW 15.2 % (11.5-15.5); WBC 7.6 k/uL (3.8-10.6)
[2024-06-19 08:13] LABS: Potassium 3.8 mmol/L (3.5-5.1)
[2024-06-19 08:16] LABS: ALT 52 U/L (4-49); AST 34 U/L (17-59); African American GFR (CKD) 90 (>60 ml/min/1.73 sqM); Albumin 3.8 g/dL (3.5-5.0); Alkaline Phosphatase 57 U/L (38-126); Anion Gap 5 mmol/L; Blood Urea Nitrogen 31 mg/dL (9-20); Calcium 9.1 mg/dL (8.4-10.2); Carbon Dioxide 26 mmol/L (22-30); Chloride 110 mmol/L (98-107); Glucose 119 mg/dL (74-99); Magnesium 2.3 mg/dL (1.6-2.3); Non-African American GFR(CKD) 78 (>60 ml/min/1.73 sqM); Sodium 141 mmol/L (137-145); Total Bilirubin 2.1 mg/dL (0.2-1.3); Total Protein 5.9 g/dL (6.3-8.2)
[2024-06-19] MEDS ORDERED: AMIODARONE 100 MG TAB PO SCH (09:00)
[2024-06-19] MEDS: EZETIMIBE 10 MG TAB PO SCH (09:15)
[2024-06-19] MEDS: FUROSEMIDE 10 MG/ML 4 ML VIAL IV SCH (09:15)
[2024-06-19] MEDS: allopurinoL 300 MG TAB PO SCH (09:15)
--- NOTE | 2024-06-19 11:19 | P.CRDCN ---
History of Present Illness Consult date: 06/19/24 Reason for Consult (text): PE, CHF, A-fib History of present illness: This is an 78-year-old male patient of Dr. Murillo with past medical history of coronary artery disease with prior stenting of the left circumflex, nonischemic cardiomyopathy, supraventricular tachycardia, paroxysmal atrial fibrillation, thoracic aortic dilatation, valvular heart disease, statin intolerance. We have been asked to evaluate the patient for PE, CHF and atrial fibrillation. Patient gives history that he was outside working with his dog he had tangled up his feet and had a fall. No loss of consciousness. This fall occurred about 3 weeks ago. He states he had his phone in his right chest pocket and subsequently found out that he had fractured ribs there. He was seen by his PCP and underwent a CAT scan of the chest last Wednesday and he was called yesterday with the results which were positive for bilateral PE. Patient was sent into the hospital for further evaluation. He was started on a heparin drip and has been seen by pulmonary medicine. He does have lower extremity edema which she states he always has on the right leg but worse lately and he is also noted weight gain. Patient has been started on IV Lasix 40 mg every 12 hours. Blood pressure 126/86, heart rate 97 on telemetry with atrial fibrillation, pulse ox 93% on room air. Lopressor has been increased to 50 mg twice daily. Patient was apparently on Eliquis 5 mg twice daily in the past for atrial fibrillation but he states he had significant epistaxis and was taken off it. On his last office visit in March, this was discussed with the patient and Dr. Murillo encouraged him to resume Eliquis at a lower dose of 2.5 mg twice daily but patient did not. Dr. Anderson discussed need with the patient to have him on anticoagulation specially after PE but also for atrial fibrillation. Patient does not want to try Eliquis again and does not want Coumadin. Discussed alternative of Xarelto which we will plan to start tomorrow. EKG: A-fib with LVH Chest x-ray: Borderline cardiomegaly with diffuse interstitial density. Correlate for CHF with pulmonary vascular congestion. Atypical pneumonias would be an alternative consideration. Venous Doppler of the bilateral lower extremities negative for DVT. Laboratory studies: WBC 7.6, hemoglobin 13.9, platelet count 146. Sodium 141, potassium 3.8, BUN 31 and creatinine 0.93. Troponins negative x 3. proBNP 5660. Home cardiac medications: Amiodarone 100 mg daily, amlodipine 2.5 mg daily, Zetia 10 mg daily, Toprol XL 25 mg twice daily. Cardiac catheterization 05/08/2021 revealed 40% mid LAD, 70% OM1, 10% mid RCA with successful stenting of the first obtuse marginal of the left circumflex. Echocardiogram performed in the office on 03/23/2023 revealed EF 45%, moderate MR, moderate AR, dilated aorta at 4.6 cm. Event monitor in January 2022 revealed nonsustained ventricular tachycardia and sinus rhythm Lexiscan Cardiolite stress test performed in the office in 12/16/2020 revealed nondiagnostic electrocardiographic stress testing with frequent PVCs and rare couplets, abnormal myocardial perfusion imaging with evidence of cardiomyopathy and evidence to suggest prior inferior TX and mild noel-infarct ischemia and severely impaired left ventricular function. Review Of Systems: At the time of my exam: CONSTITUTIONAL: Denies fever or chills. Reports weight gain. HEENT: Denies blurred vision, vision changes, or eye pain. Denies hemoptysis CARDIOVASCULAR: Denies chest pain. Denies orthopnea. Denies PND. Denies palpitations. Reports lower extremity edema RESPIRATORY: Denies shortness of breath. GASTROINTESTINAL: Denies abdominal pain. Denies nausea or vomiting. HEMATOLOGIC: Denies bleeding disorders. GENITOURINARY: Denies any blood in urine. SKIN: Denies puritis. Denies rash. Physical examination: Gen: This is an 78-year-old male in no acute distress VS: reviewed HEENT: Head is atraumatic, normocephalic. Pupils equal, round. Sclerae is anicteric. NECK: Supple. No JVD. LUNGS: Clear to auscultation. No wheezes or rhonchi. No intercostal retractions. HEART: Irregular rate and rhythm. ABDOMEN: Soft No tenderness. EXTREMITIES: + Bilateral lower extremity edema. No calf tenderness. NEUROLOGICAL: Patient is awake, alert and oriented x3. Assessment: Bilateral pulmonary embolism Paroxysmal atrial fibrillation not previously on anticoagulation due to nosebleeds Coronary artery disease status post PCI Nonischemic cardiomyopathy Aortic dilatation Dyslipidemia with statin intolerance Hypertension Valvular heart disease with moderate MR, moderate AR Plan: Resume patient's home cardiac medications Continue heparin drip Plan to start patient on Xarelto tomorrow Continue IV Lasix 40 mg every 12 hours Monitor EROS, daily weights, electrolytes and renal function continue amiodarone Obtain 2-D echocardiogram and Doppler study to assess cardiac structure and function Further recommendations to follow based upon clinical course Thank you kindly for this consultation. Nurse practitioner note has been reviewed, I agree with documented findings and plan of care. Patient was seen and examined. Past Medical History Past Medical History: Cancer, GERD/Reflux, Myocardial Infarction ([place]), Osteoarthritis (OA) Additional Past Medical History / Comment(s): mitral valve leak, murmer, gout, skin cancer Last Myocardial Infarction Date:: unknown History of Any Multi-Drug Resistant Organisms: None Reported Past Surgical History: Orthopedic Surgery Additional Past Surgical History / Comment(s): RIGHT KNEE ARTHROSCOPY, vidal cataracts Past Anesthesia/Blood Transfusion Reactions: No Reported Reaction Past Psychological History: No Psychological Hx Reported Smoking Status: Former smoker Past Alcohol Use History: None Reported Past Drug Use History: None Reported - Past Family History Father Family Medical History: Cancer Additional Family Medical History / Comment(s): brain tumor Mother Family Medical History: Chest Pain / Angina Medications and Allergies Home Medications Medication Instructions Recorded Confirmed Type Metoprolol Succinate (ER) [Toprol 25 mg PO BID 30 Days #60 02/02/22 06/18/24 Rx XL] Amiodarone HCl [Pacerone] 100 mg PO DAILY 06/18/24 06/18/24 History Azelastine HCl 1 spray EA NOSTRIL BID 06/18/24 06/18/24 History Ezetimibe [Zetia] 10 mg PO DAILY 06/18/24 06/18/24 History allopurinoL [Zyloprim] 300 mg PO DAILY 06/18/24 06/18/24 History amLODIPine [Norvasc] 2.5 mg PO DAILY 06/18/24 06/18/24 History Allergies Allergy/AdvReac Type Severity Reaction Status Date / Time No Known Allergies Allergy Verified 06/18/24 16:47 Physical Exam Vitals: Vital Signs Temp Pulse Pulse Resp BP BP Pulse Ox 06/19/24 03:35 124 H 18 126/86 93 L 06/18/24 23:30 103 H 18 121/85 96 06/18/24 20:45 97.6 F 100 18 126/87 91 L 06/18/24 18:20 69 18 120/82 93 L 06/18/24 17:46 106 H 18 121/88 94 L 06/18/24 16:18 108 H 20 116/86 97 06/18/24 13:42 98 F 75 16 132/81 94 L Intake and Output 06/18/24 06/19/24 06/19/24 22:59 06:59 14:59 Intake Total 104.439 0 200 Output Total 700 750 Balance -595.561 -750 200 Intake: Intake, IV Titration 104.439 0 Amount Heparin Sod,Pork in 0.45% 104.439 0 NaCl 25,000 unit In 0.45 % NaCl 1 250ml.bag @ 18 UNITS/KG/HR 16.982 mls/hr IV .[id number] [facility] Rx#: [id number] Oral 200 Output: Urine 700 750 Other: Voiding Method Toilet Toilet Urinal Urinal # Voids 1 Weight 94.347 kg 91.6 kg Results 06/19/24 06:22 06/19/24 06:22 Cardiac Enzymes 06/18/24 06/18/24 06/18/24 Range/Units 14:44 14:44 17:39 AST 39 (17-59) U/L Troponin I 0.015 0.022 (0.000-0.034) ng/mL 06/18/24 06/19/24 Range/Units 20:29 06:22 AST 34 (17-59) U/L Troponin I 0.017 (0.000-0.034) ng/mL Coagulation 06/18/24 06/18/24 06/19/24 Range/Units 14:44 20:29 06:22 PT 11.4 (10.0-12.5) sec APTT 24.3 144.8 H* 112.5 H* (22.0-30.0) sec CBC 06/18/24 06/19/24 Range/Units 14:44 06:22 WBC 10.5 7.6 (3.8-10.6) k/uL RBC 4.45 4.61 (4.30-5.90) m/uL Hgb 13.2 13.9 (13.0-17.5) gm/dL Hct 40.9 42.8 (39.0-53.0) % Plt Count 155 146 L (150-450) k/uL Comprehensive Metabolic Panel 06/18/24 06/19/24 Range/Units 14:44 06:22 Sodium 141 141 (137-145) mmol/L Potassium 3.9 3.8 (3.5-5.1) mmol/L Chloride 108 H 110 H (98-107) mmol/L Carbon Dioxide 23 26 (22-30) mmol/L BUN 35 H 31 H (9-20) mg/dL Creatinine 0.90 0.93 (0.66-1.25) mg/dL Glucose 93 119 H (74-99) mg/dL Calcium 9.2 9.1 (8.4-10.2) mg/dL AST 39 34 (17-59) U/L ALT 58 H 52 H (4-49) U/L Alkaline Phosphatase 58 57 (38-126) U/L Total Protein 5.9 L 5.9 L (6.3-8.2) g/dL Albumin 3.9 3.8 (3.5-5.0) g/dL Current Medications Generic Name Dose Route Start Last Admin Trade Name Freq PRN Reason Stop Dose Admin Allopurinol 300 mg 06/19/24 09:00 Allopurinol 300 Mg Tab PO DAILY PATSY Amiodarone HCl 100 mg 06/19/24 09:00 Amiodarone 100 Mg Tab PO DAILY PATSY Azelastine HCl 1 spray 06/18/24 21:00 06/18/24 21:09 Azelastine 137mcg/[place] EA NOSTRIL 1 spray BID PATSY Administration Ezetimibe 10 mg 06/19/24 09:00 Ezetimibe 10 Mg Tab PO DAILY PATSY Furosemide 40 mg 06/19/24 09:00 Furosemide 10 Mg/Ml 4 Ml Vial IV Q12HR PATSY Heparin Sodium (Porcine) 0 unit 06/18/24 14:28 Heparin Sodium 1,000 Un/Ml (10ml Vl) IV PER PROTOCOL PRN Low PTT Protocol Heparin Sodium/Sodium Chloride 250 mls @ 16.982 mls/hr 06/18/24 14:30 06/18/24 23:16 25,000 unit/ Sodium Chloride IV 15 units/kg/hr .[id number] PATSY 14.152 mls/hr Titration Protocol 18 UNITS/KG/HR Metoprolol Succinate 50 mg 06/18/24 21:00 06/18/24 21:09 Metoprolol Succinate (Er) 50 Mg Tab.Er.24h PO 50 mg BID PATSY Administration Naloxone HCl 0.2 mg 06/18/24 16:27 Naloxone 0.4 Mg/Ml 1 Ml Vial IV Q2M PRN Opioid Reversal Intake and Output 06/18/24 06/19/24 06/19/24 22:59 06:59 14:59 Intake Total 104.439 0 200 Output Total 700 750 Balance -595.561 -750 200 Intake: Intake, IV Titration 104.439 0 Amount Heparin Sod,Pork in 0.45% 104.439 0 NaCl 25,000 unit In 0.45 % NaCl 1 250ml.bag @ 18 UNITS/KG/HR 16.982 mls/hr IV .[id number] PATSY Rx#: [id number] Oral 200 Output: Urine 700 750 Other: Voiding Method Toilet Toilet Urinal Urinal # Voids 1 Weight 94.347 kg 91.6 kg 06/19/24 06:22 06/19/24 06:22
--- NOTE | 2024-06-19 13:58 | CA ---
Transthoracic Echo Report Name: Sarkis Osullivan Age: 78 Gender: M : 1945 Exam Date: 06/19/2024 09:49 Exam Location: [place] [facility] Ht (in): 71 Wt (lb): 207 Ordering Physician: Justin Ordonez MD Attending/Referring Phys: Emergency Detail Driver Jennie Wheeler RDCS Procedure CPT: Indications: bilateral PE, eval for heart strain Cardiac Hx: Technical Quality: Fair Contrast 1: Total Dose (mL): Contrast 2: Total Dose (mL): MEASUREMENTS (Male / Female) Normal Values 2D ECHO LV Diastolic Diameter PLAX 4.7 cm 4.2 - 5.9 / 3.9 - 5.3 cm LV Systolic Diameter PLAX 4.1 cm IVS Diastolic Thickness 2.1 cm 0.6 - 1.0 / 0.6 - 0.9 cm LVPW Diastolic Thickness 1.7 cm 0.6 - 1.0 / 0.6 - 0.9 cm LV Relative Wall Thickness 0.8 LV Diastolic Volume MOD 4C 180.3 cm??? LV Systolic Volume MOD 4C 160.7 cm??? LV Ejection Fraction MOD 4C 10.9 % LV Cardiac Index MOD 4C 867.5 cm???/min???m??? LV Diastolic Length 4C 8.3 cm LV Systolic Length 4C 8.0 cm LA Volume 145.9 cm??? 18 - 58 / 22 - 52 cm??? LA Volume Index 66.7 cm???/m??? 16 - 28 cm???/m??? M-MODE Aortic Root Diameter MM 4.3 cm LA Systolic Diameter MM 5.0 cm LA Ao Ratio MM 1.1 DOPPLER AV Peak Velocity 101.5 cm/s AV Peak Gradient 4.1 mmHg AV Mean Velocity 70.8 cm/s AV Mean Gradient 2.2 mmHg AV Velocity Time Integral 13.7 cm AI Peak Velocity 451.3 cm/s AI Peak Gradient 81.5 mmHg AI Pressure Half Time 330.3 ms LVOT Peak Velocity 64.2 cm/s LVOT Peak Gradient 1.6 mmHg LVOT Velocity Time Integral 11.7 cm MV Area PHT 6.4 cm??? MR Peak Velocity 516.5 cm/s MR Peak Gradient 106.7 mmHg MR Flow Rate PISA 73.9 cm???/s Mitral E Point Velocity 91.1 cm/s Mitral A Point Velocity 0.9 cm/s Mitral E to A Ratio 99.7 MV Deceleration Time 119.2 ms TR Peak Velocity 215.9 cm/s TR Peak Gradient 18.7 mmHg Right Ventricular Systolic Press 22.0 mmHg FINDINGS Left Ventricle Severely increased left ventricular wall thickness. Left ventricular cavity size normal. Severely reduced global left ventricular systolic function. Left ventricular ejection fraction is estimated at 20 %. Abnormal left ventricular diastolic filling pattern. Right Ventricle Normal right ventricular size and function. Right Atrium Normal right atrial size. Left Atrium Severely increased left atrial volume. Moderately increased left atrial area. Mitral Valve Structurally normal mitral valve. Mitral valve thickened. Mild mitral annular calcification. [id number] mitral regurgitation. Centrally directed mitral regurgitation jet. Aortic Valve No aortic stenosis. Trace aortic regurgitation. Tricuspid Valve Structurally normal tricuspid valve. Mild tricuspid regurgitation. Pulmonic Valve Pulmonic valve not well visualized. Pericardium No pericardial effusion. Aorta Normal size aortic root and proximal ascending aorta. CONCLUSIONS Left ventricular ejection fraction 20% Moderate to severely dilated left atrium Moderate to severe mitral regurgitation Mild tricuspid regurgitation Normal right ventricular size and function Previewed by: Dr. Lukas Joiner DO (Electronically Signed) Final Date: 19 June 2024 13:57
[2024-06-19] MEDS: FUROSEMIDE 10 MG/ML 4 ML VIAL ONE (14:53)
--- NOTE | 2024-06-19 15:58 | P.PN ---
Subjective Progress Note Date: 06/19/24 Subjective: Patient seen and examined at the bedside. No acute events overnight. All Systems reviewed and pertinent positives and negatives noted in HPI, all other symptoms are negative Objective: Vital signs reviewed. Gen: in no apparent distress, resting comfortably in bed Eyes: PERRL, no scleral injection or icterus HENT: normocephalic, atraumatic, good hearing acuity, moist mucous membranes Neck: full range of motion Resp: Basilar rales, rhonchi, or wheezes CVS: normal S1 and S2, irregular, no murmurs, rubs or gallops, no edema GI: soft, NTTP, ND, no hepatosplenomegaly : no suprapubic tenderness, no CVAT MSK: no clubbing, no cyanosis, no noted contractures of extremities Skin: no noted rashes, petechiae; temperature of skin is appropriate, actinic keratosis noted on left sided nose Neuro: moving all extremities without signs of weakness, CN II-XII intact Psych: cooperative, euthymic mood, insight and judgment intact Data reviewed today: WBC 7.6, hemoglobin 13.9, hematocrit 42.8, MCV 92.8, platelet count 146, APTT 112.5, sodium 141, potassium 3.8, chloride >, bicarb 26, BUN 31, creatinine 0.93, glucose 119, calcium 9.1, magnesium 2.3, total bili 2.1, AST 34, ALT 52, alkaline phosphatase 57. Echocardiogram done on 06/19/2024 shows LVEF 20%, moderate to severely dilated left atrium, moderate to severe mitral regurgitation, mild tricuspid regurgitation. Assessment and Plan: 78-year-old patient with history of A-fib, hypertension, CAD status post stent and gout presented to the hospital after found to have pulmonary embolism on outpatient CT scan. Patient has been having chest pain, nonproductive cough, exertional dyspnea since last couple of weeks along with progressively worsening bilateral lower extremity edema. 1. Acute known massive PE, likely unprovoked Outpatient CT report requested Continue with heparin drip, monitor APTT, daily CBC Consider switching to oral anticoagulant Pulmonology note reviewed, continue heparin -Lower extremity venous Dopplers negative for DVT -Vascular surgery was initially consulted by 2. 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 Atrial fibrillation with RVR Continue with metoprolol 50 mg p.o. twice daily Cardiology following 4. Gout Continue allopurinol 3 mg p.o. daily 5. Dyslipidemia Continue with ezetimibe 10 mg p.o. daily F: None E: Replete as needed N: Heart healthy diet A: Ambulatory DVT ppx: IV heparin Code Status: Full code Anticipated discharge place: Pending clinical course Anticipated discharge date: Pending clinical course I have seen and evaluated the patient today. Discussed with the resident and agree with the residents finding and plan as documented in the resident's note. Changes highlighted in blue font. Objective - Vital Signs Vital signs: Vital Signs Temp 97.5 F L 06/19/24 12:10 Pulse 88 06/19/24 14:00 Resp 17 06/19/24 14:00 BP 118/78 06/19/24 12:10 Pulse Ox 95 06/19/24 12:10 FiO2 Intake & Output 06/18/24 06/19/24 06/19/24 18:59 06:59 18:59 Intake Total 104.439 343.407 Output Total 1450 Balance -1345.561 343.407 Weight 94.347 kg 91.6 kg Intake: Intake, IV Titration 104.439 143.407 Amount Heparin Sod,Pork in 0.45% 104.439 143.407 NaCl 25,000 unit In 0.45 % NaCl 1 250ml.bag @ 18 UNITS/KG/HR 16.982 mls/hr IV .[id number] [facility] Rx#: [id number] Oral 200 Output: Urine 1450 Other: Voiding Method Toilet Toilet Urinal Urinal # Voids 1 - Labs CBC & Chem 7: 06/19/24 06:22 06/19/24 06:22 Labs: Abnormal Lab Results - Last 24 Hours (Table) 06/18/24 06/19/24 06/19/24 Range/Units 20:29 06:22 06:22 Plt Count 146 L (150-450) k/uL APTT 144.8 H* (22.0-30.0) sec Chloride 110 H (98-107) mmol/L BUN 31 H (9-20) mg/dL Glucose 119 H (74-99) mg/dL Total Bilirubin 2.1 H (0.2-1.3) mg/dL ALT 52 H (4-49) U/L Total Protein 5.9 L (6.3-8.2) g/dL 06/19/24 06/19/24 Range/Units 06:22 15:15 Plt Count (150-450) k/uL APTT 112.5 H* 66.9 H (22.0-30.0) sec Chloride (98-107) mmol/L BUN (9-20) mg/dL Glucose (74-99) mg/dL Total Bilirubin (0.2-1.3) mg/dL ALT (4-49) U/L Total Protein (6.3-8.2) g/dL
[2024-06-20] MEDS: FUROSEMIDE 40 MG TAB PO SCH (08:51)
--- NOTE | 2024-06-20 10:31 | P.GSCN ---
History of Present Illness Consult date: 06/20/24 Reason for Consult: Bilateral PE History of present illness: 78-year-old male with history of atrial fibrillation, hypertension, CAD status post stent ,gout presented after found to have PE on outpatient CT scan. He was having some chest discomfort and therefore underwent chest x-ray and ultimately a CT scan for follow-up which demonstrated the bilateral embolism. He states today he is asymptomatic and feels great denies any chest pain or shortness of breath. Denies any lower extremity discomfort. He had ultrasounds of his lower extremities which demonstrated no evidence of DVT. Review of Systems All systems: negative (What is mentioned in the HPI or past medical history) Past Medical History Past Medical History: Cancer, GERD/Reflux, Myocardial Infarction ([place]), Osteoarthritis ([place]) Additional Past Medical History / Comment(s): mitral valve leak, murmer, gout, skin cancer Last Myocardial Infarction Date:: unknown History of Any Multi-Drug Resistant Organisms: None Reported Past Surgical History: Orthopedic Surgery Additional Past Surgical History / Comment(s): RIGHT KNEE ARTHROSCOPY, vidal cataracts Past Anesthesia/Blood Transfusion Reactions: No Reported Reaction Past Psychological History: No Psychological Hx Reported Smoking Status: Former smoker Past Alcohol Use History: None Reported Past Drug Use History: None Reported - Past Family History Father Family Medical History: Cancer Additional Family Medical History / Comment(s): brain tumor Mother Family Medical History: Chest Pain / Angina Medications and Allergies Home Medications Medication Instructions Recorded Confirmed Type Metoprolol Succinate (ER) [Toprol 25 mg PO BID 30 Days #60 02/02/22 06/18/24 Rx XL] Amiodarone HCl [Pacerone] 100 mg PO DAILY 06/18/24 06/18/24 History Azelastine HCl 1 spray EA NOSTRIL BID 06/18/24 06/18/24 History Ezetimibe [Zetia] 10 mg PO DAILY 06/18/24 06/18/24 History allopurinoL [Zyloprim] 300 mg PO DAILY 06/18/24 06/18/24 History amLODIPine [Norvasc] 2.5 mg PO DAILY 06/18/24 06/18/24 History Allergies Allergy/AdvReac Type Severity Reaction Status Date / Time No Known Allergies Allergy Verified 06/18/24 16:47 Surgical - Exam Vital Signs Temp Pulse Resp BP Pulse Ox 98 F 75 16 132/81 94 L 06/18/24 13:42 06/18/24 13:42 06/18/24 13:42 06/18/24 13:42 06/18/24 13:42 Patient Seen Date: 06/20/24 Patient Seen Time: 08:00 - General well developed, well nourished, no distress - Eyes PERRL, normal ocular movement - ENT normal pinna, normal nares - Neck no masses, no bruits - Respiratory normal expansion - Cardiovascular Rhythm: regular - Abdomen Abdomen: soft, non tender - Neurologic normal coordination, normal sensation - Musculoskeletal normal gait - Psychiatric oriented to time, oriented to person, oriented to place, speech is normal Palpable DP and PT pulse Results - Labs 06/19/24 06:22 06/19/24 06:22 Abnormal Lab Results - Last 24 Hours (Table) 06/19/24 06/20/24 Range/Units 15:15 07:51 APTT 66.9 H 81.7 H (22.0-30.0) sec Assessment and Plan Assessment: Bilateral pulmonary embolism History of chest pain Plan: Reviewed imaging with the patient in full detail. Echo is negative for any heart strain. Lower extremity venous duplex is negative for DVT. Agree with anticoagulation and would recommend oral anticoagulation x 6 months. No vascular surgical intervention required at this time. Thank you for the consultation.
--- NOTE | 2024-06-20 11:10 | P.PN ---
Subjective Progress Note Date: 06/20/24 Principal diagnosis: Pulmonary embolism. Patient is a 78-year-old white male with past medical history significant for atrial fibrillation, valvular heart disease, coronary artery disease with previous stent, hypertension, hyperlipidemia, and remote history of tobacco use. Patient states that he fell approximately 1 month ago. He was told that he had some rib fractures. Was still having intermittent shortness of breath and occasional nonproductive cough. His primary care provider, recommended that he have a CAT scan of his chest done. This was reportedly done on May at [facility] location on [address] Reportedly, he received a phone call yesterday notifying him of blood clots in his lungs on both sides, and was directed to the nearest emergency department. We do not have access to this image or report at this time; however, we are working on obtaining this documentation. Patient is currently sitting up at the edge of the bed, on room air, no acute respiratory distress. He is on a heparin infusion per protocol. Hemodynamics are stable. Not requiring vasopressors. He denies any significant shortness of breath, chest pain, hemoptysis or sputum production, fever, heart palpitations, lightheadedness or syncopal events. He has had increased lower extremity swelling, greater so on the right. Venous Doppler is pending. Denies any previous history of DVT/PE. No recent travel, surgeries, hospitalizations. He was previously on Eliquis, for his chronic atrial fibrillation. This medication has previously been discontinued, due to frequent nosebleeds. Chest x-ray shows stable cardiac silhouette and prominent interstitial pattern. CBC and BMP unremarkable. D-dimer 8.5. Troponin 0.015, 0.022, and 0.017 respectively. NT proBNP elevated at 5660. EKG consistent with atrial fibrillation with controlled ventricular response and frequent unifocal PVCs. Echocardiogram to assess for right-sided heart strain is pending. Progress note dated June 20, 2024. 78-year-old male seen in room 356. He is resting comfortably. He is on room air. He is not short of breath, or having chest pain. He continues on IV heparin. He will be transition to Xarelto today. Current labs include a PTT of 81.7. Labs from yesterday have been reviewed. Troponins Were 0.022 and 0.017. The patient's echocardiogram has been reviewed. Objective - Vital Signs Vital signs: Vital Signs Temp 98.1 F 06/20/24 08:10 Pulse 91 06/20/24 08:10 Resp 18 06/20/24 08:10 BP 119/81 06/20/24 08:10 Pulse Ox 95 06/20/24 08:10 FiO2 Intake & Output 06/19/24 06/20/24 06/20/24 18:59 06:59 18:59 Intake Total 583.407 120.154 Output Total 1200 1700 Balance -616.593 -1700 120.154 Weight 90.2 kg Intake: Intake, IV Titration 143.407 2.154 Amount Heparin Sod,Pork in 0.45% 143.407 2.154 NaCl 25,000 unit In 0.45 % NaCl 1 250ml.bag @ 18 UNITS/KG/HR 16.982 mls/hr IV .[id number] [facility] Rx#: [id number] Oral 440 118 Output: Urine 1200 1700 Other: Voiding Method Toilet Toilet Toilet Urinal Urinal Urinal # Voids 2 - Exam No acute distress, oriented 3. Currently, on room air. HEENT examination is grossly unremarkable. Mucous membranes are moist. No oral lesions. Neck supple. Full range of motion. No adenopathy thyromegaly or neck vein distention. Cardiovascular examination reveals regular rhythm rate. S1-S2 normal. No S3 or S4. No discernible murmur noted. Lungs reveal clear breath sounds. Breath sounds are equal bilaterally. No adventitious lung sounds including wheezes rhonchi or crackles. Abdomen soft bowel sounds are heard. No masses or tenderness. Extremities are intact. No cyanosis clubbing or edema. Skin is without rash or lesion. Neurologic examination is brief but nonfocal. - Labs CBC & Chem 7: 06/19/24 06:22 06/19/24 06:22 Labs: Abnormal Lab Results - Last 24 Hours (Table) 06/19/24 06/20/24 Range/Units 15:15 07:51 APTT 66.9 H 81.7 H (22.0-30.0) sec Assessment and Plan Assessment: Acute bilateral pulmonary embolism. Chronic atrial fibrillation. History of coronary artery disease with previous stent. History of heart failure with reduced ejection fraction and valvular heart disease. History of hyperlipidemia. History of hypertension. Remote history of tobacco use. Plan: Plan dated June 20, 2024. The patient is seen today in room 356. The patient appears to be relatively stable. The patient denies any shortness of breath, difficulty breathing, cough ing, wheezing, chest pain, chest pressure, palpitations, etc. The patient continues on IV heparin. The patient will be transition to a factor Xa inhibitor, I believe Xarelto. No additional recommendations are made. The patient will need follow-up, and a follow-up CT angiogram, in about 8 to 10 w eeks. Additional recommendations and suggestions are forthcoming. Time with Patient: Less than 30
--- NOTE | 2024-06-20 12:57 | P.PN ---
Subjective Progress Note Date: 06/20/24 Subjective: Patient seen and examined at the bedside. No acute events overnight. All Systems reviewed and pertinent positives and negatives noted in HPI, all other symptoms are negative Objective: Vital signs reviewed. Gen: in no apparent distress, resting comfortably in bed Eyes: PERRL, no scleral injection or icterus HENT: normocephalic, atraumatic, good hearing acuity, moist mucous membranes Neck: full range of motion, Elevated JVP Resp: Basilar rales, rhonchi, or wheezes CVS: normal S1 and S2, irregular, no murmurs, rubs or gallops, no edema GI: soft, NTTP, ND, no hepatosplenomegaly : no suprapubic tenderness, no CVAT MSK: no clubbing, no cyanosis, no noted contractures of extremities Skin: no noted rashes, petechiae; temperature of skin is appropriate, actinic keratosis noted on left sided nose Neuro: moving all extremities without signs of weakness, CN II-XII intact Psych: cooperative, euthymic mood, insight and judgment intact Data reviewed today: APTT 81.7 I's and O's: -2316.593 mL Echocardiogram done on 06/19/2024 shows LVEF 20%, moderate to severely dilated left atrium, moderate to severe mitral regurgitation, mild tricuspid regurgitation. Assessment and Plan: 78-year-old patient with history of A-fib, hypertension, CAD status post stent and gout presented to the hospital after found to have pulmonary embolism on outpatient CT scan. Patient has been having chest pain, nonproductive cough, exertional dyspnea since last couple of weeks along with progressively worsening bilateral lower extremity edema. 1. Acute known massive PE, likely unprovoked Outpatient CT report requested Continue with heparin drip, monitor APTT, daily CBC Consider switching to oral anticoagulant Continue with high intensity heparin drip Lower extremity venous Dopplers negative for DVT 2. HFrEF with LV ejection fraction of 20% Systolic cardiomyopathy, unclear if ischemic versus nonischemic History of CAD status post stent History of hypertension, holding home amlodipine Echocardiogram done on 06/19/2024 shows LVEF 20% Continue to monitor electrolytes Strict I's and O's Daily weights Cardiology note reviewed patient needs to be optimized on guideline directed medical therapy for heart failure IV Lasix discontinued Started on Lasix 40 mg p.o. twice daily 3. Atrial fibrillation with RVR Continue with metoprolol 50 mg p.o. twice daily Cardiology following 4. Gout Continue allopurinol 3 mg p.o. daily 5. Dyslipidemia Continue with ezetimibe 10 mg p.o. daily F: None E: Replete as needed N: Heart healthy diet A: Ambulatory DVT ppx: IV heparin Code Status: Full code Anticipated discharge place: Pending clinical course Anticipated discharge date: Pending clinical course I saw and evaluated the patient during the morris and critical portions of this encounter, and discussed the case in detail with the resident author of this note, I agree with the Assessment and Plan, and my changes, if any, are highlighted in blue. Objective - Vital Signs Vital signs: Vital Signs Temp 98.0 F 06/20/24 11:47 Pulse 99 06/20/24 11:47 Resp 18 06/20/24 11:47 BP 111/67 06/20/24 11:47 Pulse Ox 97 06/20/24 11:47 FiO2 Intake & Output 06/19/24 06/20/24 06/20/24 18:59 06:59 18:59 Intake Total 583.407 120.154 Output Total 1200 1700 Balance -616.593 -1700 120.154 Weight 90.2 kg Intake: Intake, IV Titration 143.407 2.154 Amount Heparin Sod,Pork in 0.45% 143.407 2.154 NaCl 25,000 unit In 0.45 % NaCl 1 250ml.bag @ 18 UNITS/KG/HR 16.982 mls/hr IV .[id number] [facility] Rx#: [id number] Oral 440 118 Output: Urine 1200 1700 Other: Voiding Method Toilet Toilet Toilet Urinal Urinal Urinal # Voids 2 - Labs CBC & Chem 7: 06/19/24 06:22 06/19/24 06:22 Labs: Abnormal Lab Results - Last 24 Hours (Table) 06/19/24 06/20/24 Range/Units 15:15 07:51 APTT 66.9 H 81.7 H (22.0-30.0) sec
[2024-06-21] MEDS: Rivaroxaban Initiation Dose--VTE 15 MG TAB PO SCH (10:02)
--- NOTE | 2024-06-21 11:36 | P.PN ---
Subjective Progress Note Date: 06/21/24 Principal diagnosis: Pulmonary embolism. Patient is a 78-year-old white male with past medical history significant for atrial fibrillation, valvular heart disease, coronary artery disease with previous stent, hypertension, hyperlipidemia, and remote history of tobacco use. Patient states that he fell approximately 1 month ago. He was told that he had some rib fractures. Was still having intermittent shortness of breath and occasional nonproductive cough. His primary care provider, recommended that he have a CAT scan of his chest done. This was reportedly done on May at [facility] location on [address] Reportedly, he received a phone call yesterday notifying him of blood clots in his lungs on both sides, and was directed to the nearest emergency department. We do not have access to this image or report at this time; however, we are working on obtaining this documentation. Patient is currently sitting up at the edge of the bed, on room air, no acute respiratory distress. He is on a heparin infusion per protocol. Hemodynamics are stable. Not requiring vasopressors. He denies any significant shortness of breath, chest pain, hemoptysis or sputum production, fever, heart palpitations, lightheadedness or syncopal events. He has had increased lower extremity swelling, greater so on the right. Venous Doppler is pending. Denies any previous history of DVT/PE. No recent travel, surgeries, hospitalizations. He was previously on Eliquis, for his chronic atrial fibrillation. This medication has previously been discontinued, due to frequent nosebleeds. Chest x-ray shows stable cardiac silhouette and prominent interstitial pattern. CBC and BMP unremarkable. D-dimer 8.5. Troponin 0.015, 0.022, and 0.017 respectively. NT proBNP elevated at 5660. EKG consistent with atrial fibrillation with controlled ventricular response and frequent unifocal PVCs. Echocardiogram to assess for right-sided heart strain is pending. Progress note dated June 20, 2024. 78-year-old male seen in room 356. He is resting comfortably. He is on room air. He is not short of breath, or having chest pain. He continues on IV heparin. He will be transition to Xarelto today. Current labs include a PTT of 81.7. Labs from yesterday have been reviewed. Troponins Were 0.022 and 0.017. The patient's echocardiogram has been reviewed. Progress note dated June 21, 2024. 78-year-old male seen today in room 356. The patient is currently off the IV heparin. He is on room air. Receiving no IV fluids. The patient is hoping to be discharged. I told him I would like to see him in the office, sometime after discharge. He will need a follow-up CT angiogram. No new labs today, other than a PTT of 36.5. The patient was started on Xarelto. Objective - Vital Signs Vital signs: Vital Signs Temp 97.7 F 06/21/24 11:29 Pulse 96 06/21/24 11:29 Resp 12 06/21/24 11:29 BP 100/63 06/21/24 11:29 Pulse Ox 97 06/21/24 11:29 FiO2 Intake & Output 06/20/24 06/21/24 06/21/24 18:59 06:59 18:59 Intake Total 238.154 350 Output Total 1050 275 200 Balance -811.846 -275 150 Weight 88.8 kg Intake: Intake, IV Titration 2.154 Amount Heparin Sod,Pork in 0.45% 2.154 NaCl 25,000 unit In 0.45 % NaCl 1 250ml.bag @ 18 UNITS/KG/HR 16.982 mls/hr IV .[id number] [facility] Rx#: [id number] Oral 236 350 Output: Urine 1050 275 200 Other: Voiding Method Toilet Toilet Toilet Urinal Urinal Urinal # Voids 1 - Exam No acute distress, oriented 3. Currently, on room air. HEENT examination is grossly unremarkable. Mucous membranes are moist. No oral lesions. Neck supple. Full range of motion. No adenopathy thyromegaly or neck vein distention. Cardiovascular examination reveals regular rhythm rate. S1-S2 normal. No S3 or S4. No discernible murmur noted. Lungs reveal clear breath sounds. Breath sounds are equal bilaterally. No adventitious lung sounds including wheezes rhonchi or crackles. Abdomen soft bowel sounds are heard. No masses or tenderness. Extremities are intact. No cyanosis clubbing or edema. Skin is without rash or lesion. Neurologic examination is brief but nonfocal. - Labs CBC & Chem 7: 06/19/24 06:22 06/19/24 06:22 Labs: Abnormal Lab Results - Last 24 Hours (Table) 06/20/24 06/21/24 Range/Units 15:55 09:24 APTT 54.8 H 36.5 H (22.0-30.0) sec Assessment and Plan Assessment: Acute bilateral pulmonary embolism. Chronic atrial fibrillation. History of coronary artery disease with previous stent. History of heart failure with reduced ejection fraction and valvular heart disease. History of hyperlipidemia. History of hypertension. Remote history of tobacco use. Plan: Plan dated June 20, 2024. The patient is seen today in room 356. The patient appears to be relatively stable. The patient denies any shortness of breath, difficulty breathing, coughing, wheezing, chest pain, chest pressure, palpitations, etc. The patient continues on IV heparin. The patient will be transition to a factor Xa inhibitor, I believe Xarelto. No additional recommendations are made. The patient will need follow-up, and a follow-up CT angiogram, in about 8 to 10 weeks. Additional recommendations and suggestions are forthcoming. Plan dated June 21, 2024. The patient is seen today room 356. The patient is off of IV heparin. He was placed on Xarelto. The patient is not receiving any supplemental oxygen. No IV fluids. The patient is hoping to be discharged. The patient will follow-up with his primary care physician Dr. Morocho. I also mentioned to him that I would like to see him in the office, and the patient will need a follow-up CT angiogram, in 8 to 10 weeks. Time with Patient: Less than 30
--- NOTE | 2024-06-21 13:39 | P.PN ---
Subjective Progress Note Date: 06/21/24 Reason for Consult (text): PE, CHF, A-fib History of present illness: This is an 78-year-old male patient of Dr. Murillo with past medical history of coronary artery disease with prior stenting of the left circumflex, nonischemic cardiomyopathy, supraventricular tachycardia, paroxysmal atrial fibrillation, thoracic aortic dilatation, valvular heart disease, statin intolerance. We have been asked to evaluate the patient for PE, CHF and atrial fibrillation. Patient gives history that he was outside working with his dog he had tangled up his feet and had a fall. No loss of consciousness. This fall occurred about 3 weeks ago. He states he had his phone in his right chest pocket and subsequently found out that he had fractured ribs there. He was seen by his PCP and underwent a CAT scan of the chest last Wednesday and he was called yesterday with the results which were positive for bilateral PE. Patient was sent into the hospital for further evaluation. He was started on a heparin drip and has been seen by pulmonary medicine. He does have lower extremity edema which she states he always has on the right leg but worse lately and he is also noted weight gain. Patient has been started on IV Lasix 40 mg every 12 hours. Blood pressure 126/86, heart rate 97 on telemetry with atrial fibrillation, pulse ox 93% on room air. Lopressor has been increased to 50 mg twice daily. Patient was apparently on Eliquis 5 mg twice daily in the past for atrial fibrillation but he states he had significant epistaxis and was taken off it. On his last office visit in March, this was discussed with the patient and Dr. Murillo encouraged him to resume Eliquis at a lower dose of 2.5 mg twice daily but patient did not. Dr. Anderson discussed need with the patient to have him on anticoagulation specially after PE but also for atrial fibrillation. Patient does not want to try Eliquis again and does not want Coumadin. Discussed alternative of Xarelto which we will plan to start tomorrow. EKG: A-fib with LVH Chest x-ray: Borderline cardiomegaly with diffuse interstitial density. Correlate for CHF with pulmonary vascular congestion. Atypical pneumonias would be an alternative consideration. Venous Doppler of the bilateral lower extremities negative for DVT. Laboratory studies: WBC 7.6, hemoglobin 13.9, platelet count 146. Sodium 141, potassium 3.8, BUN 31 and creatinine 0.93. Troponins negative x 3. proBNP 5660. Home cardiac medications: Amiodarone 100 mg daily, amlodipine 2.5 mg daily, Zetia 10 mg daily, Toprol XL 25 mg twice daily. Cardiac catheterization 05/08/2021 revealed 40% mid LAD, 70% OM1, 10% mid RCA with successful stenting of the first obtuse marginal of the left circumflex. Echocardiogram performed in the office on 03/23/2023 revealed EF 45%, moderate MR, moderate AR, dilated aorta at 4.6 cm. Event monitor in January 2022 revealed nonsustained ventricular tachycardia and sinus rhythm Lexiscan Cardiolite stress test performed in the office in 12/16/2020 revealed nondiagnostic electrocardiographic stress testing with frequent PVCs and rare couplets, abnormal myocardial perfusion imaging with evidence of cardiomyopathy and evidence to suggest prior inferior IL and mild noel-infarct ischemia and severely impaired left ventricular function. 06/21 Patient is seen today in follow-up. Patient has been on IV heparin we will transition to oral Xarelto. Patient is agreeable to Xarelto. Blood pressure 108/78, heart rate 95, pulse ox 95% on room air. Regarding IV Lasix, this was transitioned to oral as of yesterday. Echocardiogram reveals EF of 20%, moderate to severe dilated left atrium, moderate to severe mitral regurgitation, mild tricuspid regurgitation. Noted that there was a change in patient's EF and this was not discussed with the patient and he was given the option of LifeVest and he was to think about this and make a decision. He has decided to move forward with LifeVest which will be ordered tomorrow. Physical examination: Gen: This is an 78-year-old male in no acute distress VS: reviewed HEENT: Head is atraumatic, normocephalic. Pupils equal, round. Sclerae is anicteric. NECK: Supple. No JVD. LUNGS: Clear to auscultation. No wheezes or rhonchi. No intercostal retractions. HEART: Irregular rate and rhythm. ABDOMEN: Soft No tenderness. EXTREMITIES: + Bilateral lower extremity edema. No calf tenderness. NEUROLOGICAL: Patient is awake, alert and oriented x3. Assessment: Bilateral pulmonary embolism Paroxysmal atrial fibrillation not previously on anticoagulation due to nosebl eeds Coronary artery disease status post PCI Nonischemic cardiomyopathy Aortic dilatation Dyslipidemia with statin intolerance Hypertension Valvular heart disease with moderate MR, moderate AR Plan: Continue patient's home cardiac medications Discontinue heparin drip and start patient on Xarelto dose for PE Continue oral Lasix Monitor EROS, daily weights, electrolytes and renal function continue amiodarone Order LifeVest prior to discharge Further recommendations to follow based upon clinical course Nurse practitioner note has been reviewed, I agree with documented findings and plan of care. Patient was seen and examined. Objective - Vital Signs Vital signs: Vital Signs Temp 97.9 F 06/21/24 08:00 Pulse 95 06/21/24 08:00 Resp 14 06/21/24 08:00 BP 108/78 06/21/24 08:00 Pulse Ox 95 06/21/24 08:00 FiO2 Intake & Output 06/20/24 06/21/24 06/21/24 18:59 06:59 18:59 Intake Total 238.154 350 Output Total 1050 275 Balance -811.846 -275 350 Weight 88.8 kg Intake: Intake, IV Titration 2.154 Amount Heparin Sod,Pork in 0.45% 2.154 NaCl 25,000 unit In 0.45 % NaCl 1 250ml.bag @ 18 UNITS/KG/HR 16.982 mls/hr IV .[id number] [facility] Rx#: [id number] Oral 236 350 Output: Urine 1050 275 Other: Voiding Method Toilet Toilet Urinal Urinal # Voids 1 - Labs CBC & Chem 7: 06/22/24 05:50 06/19/24 06:22 Labs: Abnormal Lab Results - Last 24 Hours (Table) 06/20/24 Range/Units 15:55 APTT 54.8 H (22.0-30.0) sec
--- NOTE | 2024-06-21 13:51 | P.PN ---
Subjective Progress Note Date: 06/21/24 Subjective: No acute events overnight. All Systems reviewed and pertinent positives and negatives noted in HPI, all other symptoms are negative Objective: Vital signs reviewed. Gen: In NAD, non-toxic HEENT: normocephalic, atraumatic, hearing acuity is intant, mucous membranes moist CVS: perfusing all extremities well, no pitting edema, Respiratory: symmetric chest expansion, no accessory muscle use, GI: soft, NTTP, ND, : no suprapubic tenderness, no CVA tenderness MSK/Derm: no rashes, cyanosis Neuro: CN II-XII intact, no motor weakness, Psych: cooperative, euthymic mood, judgment and insight is intact Data reviewed today: Assessment and Plan: 78-year-old patient with history of A-fib, hypertension, CAD status post stent and gout presented to the hospital after found to have pulmonary embolism on outpatient CT scan. Patient has been having chest pain, nonproductive cough, exertional dyspnea since last couple of weeks along with progressively worsening bilateral lower extremity edema. 1. Acute known submassive PE, likely unprovoked Outpatient CT report requested Transition to Xarelto Lower extremity venous Dopplers negative for DVT 2. HFrEF with LV ejection fraction of 20% Systolic cardiomyopathy, unclear if ischemic versus nonischemic History of CAD status post stent History of hypertension, holding home amlodipine Echocardiogram done on 06/19/2024 shows LVEF 20% Continue to monitor electrolytes Strict I's and O's Daily weights Cardiology note reviewed Guideline directed medical therapy: Added lisinopril 5 mg daily today, if patient tolerates with blood pressure, will add spironolactone tomorrow, added Farxiga today IV Lasix discontinued Started on Lasix 40 mg p.o. twice daily 3. Atrial fibrillation with RVR Continue with metoprolol 50 mg p.o. twice daily Cardiology following 4. Gout Continue allopurinol 3 mg p.o. daily 5. Dyslipidemia Continue with ezetimibe 10 mg p.o. daily F: None E: Replete as needed N: Heart healthy diet A: Ambulatory DVT ppx: IV heparin Code Status: Full code Anticipated discharge place: Pending clinical course Anticipated discharge date: Pending clinical course Objective - Vital Signs Vital signs: Vital Signs Temp 97.7 F 06/21/24 11:29 Pulse 96 06/21/24 11:29 Resp 12 08/28/24 11:29 BP 100/63 06/21/24 11:29 Pulse Ox 97 06/21/24 11:29 FiO2 Intake & Output 06/20/24 06/21/24 06/21/24 18:59 06:59 18:59 Intake Total 238.154 350 Output Total 1050 275 200 Balance -811.846 -275 150 Weight 88.8 kg Intake: Intake, IV Titration 2.154 Amount Heparin Sod,Pork in 0.45% 2.154 NaCl 25,000 unit In 0.45 % NaCl 1 250ml.bag @ 18 UNITS/KG/HR 16.982 mls/hr IV .[id number] [facility] Rx#: [id number] Oral 236 350 Output: Urine 1050 275 200 Other: Voiding Method Toilet Toilet Toilet Urinal Urinal Urinal # Voids 1 - Labs CBC & Chem 7: 06/19/24 06:22 06/19/24 06:22 Labs: Abnormal Lab Results - Last 24 Hours (Table) 06/20/24 06/21/24 Range/Units 15:55 09:24 APTT 54.8 H 36.5 H (22.0-30.0) sec
[2024-06-21] MEDS: DAPAGLIFLOZIN PROPANEDIOL 10 MG TABLET PO SCH (15:43)
[2024-06-21] MEDS: lisinopriL 5 MG TAB PO SCH (15:43)
[2024-06-22 06:15] LABS: Basophils # (A) 0.1 k/uL (0-0.2); Basophils % (A) 1 %; Eosinophils # (A) 0.5 k/uL (0-0.7); Eosinophils % (A) 6 %; HCT 45.5 % (39.0-53.0); HGB 14.5 gm/dL (13.0-17.5); Lymphocytes # (A) 1.3 k/uL (1.0-4.8); Lymphocytes % (A) 14 %; MCHC 31.9 g/dL (31.0-37.0); MCV 93.9 fL (80.0-100.0); Mean Platelet Volume 9.7; Monocytes # (A) 0.6 k/uL (0-1.0); Monocytes % (A) 7 %; Neutrophils # (A) 6.3 k/uL (1.3-7.7); Neutrophils % (A) 72 %; Platelet Count 183 k/uL (150-450); RBC 4.84 m/uL (4.30-5.90); RDW 15.2 % (11.5-15.5); WBC 8.8 k/uL (3.8-10.6)
[2024-06-22 07:53] LABS: African American GFR (CKD) 76 (>60 ml/min/1.73 sqM); Anion Gap 6 mmol/L; Blood Urea Nitrogen 32 mg/dL (9-20); Calcium 9.3 mg/dL (8.4-10.2); Carbon Dioxide 28 mmol/L (22-30); Chloride 105 mmol/L (98-107); Glucose 114 mg/dL (74-99); Magnesium 2.2 mg/dL (1.6-2.3); Non-African American GFR(CKD) 66 (>60 ml/min/1.73 sqM); Potassium 3.8 mmol/L (3.5-5.1); Sodium 139 mmol/L (137-145)
[2024-06-22 08:20] VITALS: RESP 20
[2024-06-22] MEDS ORDERED: SPIRONOLACTONE 25 MG TAB PO SCH (09:00)
[2024-06-22 11:33] VITALS: BP 115/56; PULSE 94; TEMP 97.4
--- NOTE | 2024-06-22 11:57 | P.PN ---
Subjective Progress Note Date: 06/22/24 Principal diagnosis: Pulmonary embolism. Patient is a 78-year-old white male with past medical history significant for atrial fibrillation, valvular heart disease, coronary artery disease with previous stent, hypertension, hyperlipidemia, and remote history of tobacco use. Patient states that he fell approximately 1 month ago. He was told that he had some rib fractures. Was still having intermittent shortness of breath and occasional nonproductive cough. His primary care provider, recommended that he have a CAT scan of his chest done. This was reportedly done on May at [facility] location on [address] Reportedly, he received a phone call yesterday notifying him of blood clots in his lungs on both sides, and was directed to the nearest emergency department. We do not have access to this image or report at this time; however, we are working on obtaining this documentation. Patient is currently sitting up at the edge of the bed, on room air, no acute respiratory distress. He is on a heparin infusion per protocol. Hemodynamics are stable. Not requiring vasopressors. He denies any significant shortness of breath, chest pain, hemoptysis or sputum production, fever, heart palpitations, lightheadedness or syncopal events. He has had increased lower extremity swelling, greater so on the right. Venous Doppler is pending. Denies any previous history of DVT/PE. No recent travel, surgeries, hospitalizations. He was previously on Eliquis, for his chronic atrial fibrillation. This medication has previously been discontinued, due to frequent nosebleeds. Chest x-ray shows stable cardiac silhouette and prominent interstitial pattern. CBC and BMP unremarkable. D-dimer 8.5. Troponin 0.015, 0.022, and 0.017 respectively. NT proBNP elevated at 5660. EKG consistent with atrial fibrillation with controlled ventricular response and frequent unifocal PVCs. Echocardiogram to assess for right-sided heart strain is pending. Progress note dated June 20, 2024. 78-year-old male seen in room 356. He is resting comfortably. He is on room air. He is not short of breath, or having chest pain. He continues on IV heparin. He will be transition to Xarelto today. Current labs include a PTT of 81.7. Labs from yesterday have been reviewed. Troponins Were 0.022 and 0.017. The patient's echocardiogram has been reviewed. Progress note dated June 21, 2024. 78-year-old male seen today in room 356. The patient is currently off the IV heparin. He is on room air. Receiving no IV fluids. The patient is hoping to be discharged. I told him I would like to see him in the office, sometime after discharge. He will need a follow-up CT angiogram. No new labs today, other than a PTT of 36.5. The patient was started on Xarelto. Progress note dated June 22, 2024. 78-year-old male seen today in room 356. The patient is currently on Xarelto, for his pulmonary emboli. He was not discharged yesterday, because of this need for a LifeVest. The patient has a very poor ejection fraction of about 20%. Clinically, the patient is stable. He is on room air. No IV fluids. He denies any shortness of breath, chest pain, chest pressure, palpitations, etc. Current labs include a white count 8.8, hemoglobin 14.5, hematocrit 45.5, and a normal platelet count. Sodium 139, potassium 3.8, chlorides 105, CO2 28, BUN 32, creatinine 1.07. Glucose is 114. Calcium 9.3, and magnesium 2.2. Objective - Vital Signs Vital signs: Vital Signs Temp 97.4 F L 06/22/24 11:32 Pulse 94 06/22/24 11:32 Resp 20 06/22/24 11:32 BP 115/56 06/22/24 11:32 Pulse Ox 94 L 06/22/24 11:32 FiO2 Intake & Output 06/21/24 06/22/24 06/22/24 18:59 06:59 18:59 Intake Total 586 Output Total 200 Balance 386 Intake: Oral 586 Output: Urine 200 Other: Voiding Method Toilet Toilet Toilet Urinal Urinal Urinal - Exam No acute distress, oriented 3. Currently, on room air. HEENT examination is grossly unremarkable. Mucous membranes are moist. No oral lesions. Neck supple. Full range of motion. No adenopathy thyromegaly or neck vein distention. Cardiovascular examination reveals regular rhythm rate. S1-S2 normal. No S3 or S4. No discernible murmur noted. Lungs reveal clear breath sounds. Breath sounds are equal bilaterally. No adventitious lung sounds including wheezes rhonchi or crackles. Abdomen soft bowel sounds are heard. No masses or tenderness. Extremities are intact. No cyanosis or clubbing. Mild lower extremity edema is noted. Skin is without rash or lesion. Neurologic examination is brief but nonfocal. - Labs CBC & Chem 7: 06/22/24 05:50 06/22/24 05:50 Labs: Abnormal Lab Results - Last 24 Hours (Table) 06/22/24 Range/Units 05:50 BUN 32 H (9-20) mg/dL Glucose 114 H (74-99) mg/dL Assessment and Plan Assessment: Acute bilateral pulmonary embolism. Chronic atrial fibrillation. History of coronary artery disease with previous stent. History of heart failure with reduced ejection fraction and valvular heart disease. History of hyperlipidemia. History of hypertension. Remote history of tobacco use. Plan: Plan dated June 20, 2024. The patient is seen today in room 356. The patient appears to be relatively stable. The patient denies any shortness of breath, difficulty breathing, coughing, wheezing, chest pain, chest pressure, palpitations, etc. The patient continues on IV heparin. The patient will be transition to a factor Xa inhibitor, I believe Xarelto. No additional recommendations are made. The patient will need follow-up, and a follow-up CT angiogram, in about 8 to 10 weeks. Additional recommendations and suggestions are forthcoming. Plan dated June 21, 2024. The patient is seen today room 356. The patient is off of IV heparin. He was placed on Xarelto. The patient is not receiving any supplemental oxygen. No IV fluids. The patient is hoping to be discharged. The patient will follow-up with his primary care physician Dr. Morocho. I also mentioned to him that I would like to see him in the office, and the patient will need a follow-up CT angiogram, in 8 to 10 weeks. Plan dated June 22, 2024. The patient is doing well. He continues on no supplemental oxygen. He is not receiving any IV fluids. He has been transition to Xarelto. The patient will likely be discharged here today. The patient will follow-up with me in the office and will need a follow-up CT angiogram. Additional recommendations and suggestions are forthcoming. Prognosis is guarded. Labs, x-rays, and all medications are reviewed. Time with Patient: Less than 30
--- NOTE | 2024-06-22 12:13 | P.DS ---
Providers Date of admission: 06/18/24 16:29 Expected date of discharge: 06/22/24 Attending physician: Delta Santoro MD Discharge Diagnosis: 1. unprovoked submassive pulmonary embolism 2. HFrEF with left ventricular ejection fraction of 20% 3. Atrial fibrillation with RVR 4. Gout 5. Dyslipidemia Hospital Course: 78-year-old male with history of atrial fibrillation, hypertension, CAD status post stent, gout presented to ER on 06/18/2024 after found to have PE on outpatie nt CT scan. He claimed that he had chest pain, nonproductive cough, shortness of breath for couple weeks and had a chest x-ray done by his primary. Chest x- ray showed findings concerning for possible pneumonia and patient was treated with antibiotics and resolution in symptoms. He later had a CT chest which showed findings concerning for pulm embolism. In the ED, temperature was 98, pulse 75, respiratory rate 16, blood pressure 132/81, saturating at 94% on room air. WBC 10.5, hemoglobin 13.2, platelet 155, D-dimer 8.5, creatinine 0.9, proBNP 5600, troponin 0.015, T. bili 1.4. Chest x- ray showed some interstitial opacities. Venous Doppler lower extremity negative for DVTs. Patient started on heparin drip. Was also given 40 mg IV Lasix. Patient was admitted for PE, and mild CHF exacerbation. Cardiology and pulmonology was consulted to evaluate the patient for PE, CHF, and A-fib. Echocardiogram done on 06/19/2024 shows ejection fraction of 20%, moderate to severe dilated left atrium, moderate to severe mitral regurgitation and mild tricuspid regurgitation. The option of LifeVest was given to the patient which he accepts and he will be discharged with a LifeVest. Patient wi ll be following up cardiology outpatient for goal-directed medical therapy for heart failure low ejection fraction. Patient will be following up patient will be seeing outpatient pulmonology for a follow-up CT angiogram. Patient will be following up with outpatient hematology oncology for unprovoked pulm embolism. Patient to be discharged on Xarelto, Farxiga, Lasix, metoprolol, lisinopril and regular home meds Vital signs reviewed. Gen: in no apparent distress, resting comfortably in bed Eyes: PERRL, no scleral injection or icterus HENT: normocephalic, atraumatic, good hearing acuity, moist mucous membranes Neck: full range of motion Resp: CTAB, no rales, rhonchi, or wheezes CVS: normal S1 and S2, no murmurs, rubs or gallops, no edema GI: soft, NTTP, ND, no hepatosplenomegaly : no suprapubic tenderness, no CVAT, kidd catheter [is/not] present MSK: no clubbing, no cyanosis, no noted contractures of extremities Skin: no noted rashes, petechiae; temperature of skin is appropriate Neuro: moving all extremities without signs of weakness, CN II-XII intact Psych: cooperative, euthymic mood, insight and judgment intact Consults: 06/18/24 16:27 Consult Physician Routine Consulting Provider: [facility] Consult Reason/Comments: PE, afib, chf Do you want consulting provider notified?: Yes Consult Physician Routine Consulting Provider: Alfonzo Cartwright Consult Reason/Comments: PE, ekos consult Do you want consulting provider notified?: Yes Consult Physician Routine Consulting Provider: Shilo Fierro Consult Reason/Comments: PE Do you want consulting provider notified?: Already Contacted Primary care physician: [facility] Course: Patient was seen and examined by me and the resident. I agree with the subjective and objective as above. We discussed the assessment and plan as docum ented below: Patient reports feeling well. No complaints. CBC and BMP significant for BUN 32, glu 114. Plans for discharge home today. Xarelto will be prescribed for PE. Follow up with Pulmonary Dr. Tate (06/30) and Hematology Dr. Keenan (1 week) for hypercoaguable workup. Prescription for Farxiga, Lasix, Metoprolol, Lisinopril sent to pharmacy. Plans for Life Vest prior to discharge. Cardiology to decide on Aldactone in the outpatient setting (appointment on 06/29). Follow up with PCP within 1-2 days of discharge. Advised importance of not running out of medication. Patient verbalized understanding of the plan. 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 Patient Condition at Discharge: Stable Plan - Discharge Summary Discharge Rx Participant: No New Discharge Prescriptions: New Dapagliflozin Propanediol [Farxiga] 10 mg PO DAILY 30 Days #30 tab Furosemide [Lasix] 40 mg PO BID@0900,1600 30 Days #60 tab Metoprolol Succinate (ER) [Toprol XL] 50 mg PO BID 30 Days #60 tab lisinopriL [Zestril] 5 mg PO DAILY 30 Days #30 tab Rivaroxaban [Xarelto Starter Pack] 0 mg PO DIRECTED 30 Days #1 packet Dapagliflozin Propanediol [Farxiga] 10 mg PO DAILY 30 Days #30 tablet Continue allopurinoL [Zyloprim] 300 mg PO DAILY Ezetimibe [Zetia] 10 mg PO DAILY Azelastine HCl 1 spray EA NOSTRIL BID Discontinued Metoprolol Succinate (ER) [Toprol XL] 25 mg PO BID 30 Days #60 amLODIPine [Norvasc] 2.5 mg PO DAILY Amiodarone HCl [Pacerone] 100 mg PO DAILY Discharge Medication List Azelastine HCl 1 spray EA NOSTRIL BID 06/18/24 [History] Ezetimibe [Zetia] 10 mg PO DAILY 06/18/24 [History] allopurinoL [Zyloprim] 300 mg PO DAILY 06/18/24 [History] Dapagliflozin Propanediol [Farxiga] 10 mg PO DAILY 30 Days #30 tab 06/22/24 [Rx] Dapagliflozin Propanediol [Farxiga] 10 mg PO DAILY 30 Days #30 tablet 06/22/24 [Rx] Furosemide [Lasix] 40 mg PO BID@0900,1600 30 Days #60 tab 06/22/24 [Rx] Metoprolol Succinate (ER) [Toprol XL] 50 mg PO BID 30 Days #60 tab 06/22/24 [Rx] Rivaroxaban [Xarelto Starter Pack] 0 mg PO DIRECTED 30 Days #1 packet 06/22/24 [Rx] lisinopriL [Zestril] 5 mg PO DAILY 30 Days #30 tab 06/22/24 [Rx] Follow up Appointment(s)/Referral(s): Ronald Keenan [STAFF PHYSICIAN] - 1 Week (PLEASE CALL OFFICE WHEN OPEN TO MAKE FOLLOW UP APPOINTMENT) Alejandro Tate DO [Doctor of Osteopathic Medicine] - 06/30/24 8:30 am Gautam Morocho MD [Primary Care Provider] - 06/27/24 8:20 am (with YAZ MAYORGA) Johnathan Anderson MD [STAFF PHYSICIAN] - 06/29/24 9:45 am (WITH DR HURLEY) Patient Instructions/Handouts: Heart Failure (ER), Low-Sodium Diet (DC), Fluid Restriction (DC) Activity/Diet/Wound Care/Special Instructions: Low salt diet 1.5 liter fluid restriction Discharge Disposition: HOME SELF-CARE
--- NOTE | 2024-06-22 12:56 | P.PN ---
Subjective Progress Note Date: 06/22/24 Reason for Consult (text): PE, CHF, A-fib History of present illness: This is an 78-year-old male patient of Dr. Murillo with past medical history of coronary artery disease with prior stenting of the left circumflex, nonischemic cardiomyopathy, supraventricular tachycardia, paroxysmal atrial fibrillation, thoracic aortic dilatation, valvular heart disease, statin intolerance. We have been asked to evaluate the patient for PE, CHF and atrial fibrillation. Patient gives history that he was outside working with his dog he had tangled up his feet and had a fall. No loss of consciousness. This fall occurred about 3 weeks ago. He states he had his phone in his right chest pocket and subsequently found out that he had fractured ribs there. He was seen by his PCP and underwent a CAT scan of the chest last Wednesday and he was called yesterday with the results which were positive for bilateral PE. Patient was sent into the hospital for further evaluation. He was started on a heparin drip and has been seen by pulmonary medicine. He does have lower extremity edema which she states he always has on the right leg but worse lately and he is also noted weight gain. Patient has been started on IV Lasix 40 mg every 12 hours. Blood pressure 126/86, heart rate 97 on telemetry with atrial fibrillation, pulse ox 93% on room air. Lopressor has been increased to 50 mg twice daily. Patient was apparently on Eliquis 5 mg twice daily in the past for atrial fibrillation but he states he had significant epistaxis and was taken off it. On his last office visit in March, this was discussed with the patient and Dr. Murillo encouraged him to resume Eliquis at a lower dose of 2.5 mg twice daily but patient did not. Dr. Anderson discussed need with the patient to have him on anticoagulation specially after PE but also for atrial fibrillation. Patient does not want to try Eliquis again and does not want Coumadin. Discussed alternative of Xarelto which we will plan to start tomorrow. EKG: A-fib with LVH Chest x-ray: Borderline cardiomegaly with diffuse interstitial density. Correlate for CHF with pulmonary vascular congestion. Atypical pneumonias would be an alternative consideration. Venous Doppler of the bilateral lower extremities negative for DVT. Laboratory studies: WBC 7.6, hemoglobin 13.9, platelet count 146. Sodium 141, potassium 3.8, BUN 31 and creatinine 0.93. Troponins negative x 3. proBNP 5660. Home cardiac medications: Amiodarone 100 mg daily, amlodipine 2.5 mg daily, Zetia 10 mg daily, Toprol XL 25 mg twice daily. Cardiac catheterization 05/08/2021 revealed 40% mid LAD, 70% OM1, 10% mid RCA with successful stenting of the first obtuse marginal of the left circumflex. Echocardiogram performed in the office on 03/23/2023 revealed EF 45%, moderate MR, moderate AR, dilated aorta at 4.6 cm. Event monitor in January 2022 revealed nonsustained ventricular tachycardia and sinus rhythm Lexiscan Cardiolite stress test performed in the office in 12/16/2020 revealed nondiagnostic electrocardiographic stress testing with frequent PVCs and rare couplets, abnormal myocardial perfusion imaging with evidence of cardiomyopathy and evidence to suggest prior inferior AR and mild noel-infarct ischemia and severely impaired left ventricular function. 06/21 Patient is seen today in follow-up. Patient has been on IV heparin we will transition to oral Xarelto. Patient is agreeable to Xarelto. Blood pressure 108/78, heart rate 95, pulse ox 95% on room air. Regarding IV Lasix, this was transitioned to oral as of yesterday. Echocardiogram reveals EF of 20%, moderate to severe dilated left atrium, moderate to severe mitral regurgitation, mild tricuspid regurgitation. Noted that there was a change in patient's EF and this was not discussed with the patient and he was given the option of LifeVest and he was to think about this and make a decision. He has decided to move forward with LifeVest which will be ordered tomorrow. 06/22 Patient is anxious to be discharged home today. We have sent orders for LifeVest which will be arranged by the case picker. Yesterday patient was started on Xarelto. He is also on oral Lasix. No complaints of chest pain, lightheadedness or dizziness. No shortness of breath. Blood pressure 131/69, heart rate 60, pulse ox 93% on room air. Physical examination: Gen: This is an 78-year-old male in no acute distress VS: reviewed HEENT: Head is atraumatic, normocephalic. Pupils equal, round. Sclerae is anicteric. NECK: Supple. No JVD. LUNGS: Clear to auscultation. No wheezes or rhonchi. No intercostal retractions. HEART: Irregular rate and rhythm. ABDOMEN: Soft No tenderness. EXTREMITIES: + Bilateral lower extremity edema. No calf tenderness. NEUROLOGICAL: Patient is awake, alert and oriented x3. Assessment: Bilateral pulmonary embolism Paroxysmal atrial fibrillation not previously on anticoagulation due to nosebleeds Coronary artery disease status post PCI Nonischemic cardiomyopathy Aortic dilatation Dyslipidemia with statin intolerance Hypertension Valvular heart disease with moderate MR, moderate AR Plan: Continue current cardiac medications Continue patient on Xarelto dose for PE Continue oral Lasix Obtain LifeVest prior to discharge Patient is cleared from cardiology for discharge once LifeVest is obtained. Patient to follow-up with Dr. Murillo in 1 week. Nurse practitioner note has been reviewed, I agree with documented findings and plan of care. Patient was seen and examined. Objective - Vital Signs Vital signs: Vital Signs Temp 98 F 06/22/24 08:00 Pulse 63 06/22/24 08:00 Resp 20 06/22/24 08:00 BP 115/74 06/22/24 08:00 Pulse Ox 96 06/22/24 08:00 FiO2 Intake & Output 06/21/24 06/22/24 06/22/24 18:59 06:59 18:59 Intake Total 586 Output Total 200 Balance 386 Intake: Oral 586 Output: Urine 200 Other: Voiding Method Toilet Toilet Urinal Urinal - Labs CBC & Chem 7: 06/22/24 05:50 06/22/24 05:50 Labs: Abnormal Lab Results - Last 24 Hours (Table) 06/21/24 06/22/24 Range/Units 09:24 05:50 APTT 36.5 H (22.0-30.0) sec BUN 32 H (9-20) mg/dL Glucose 114 H (74-99) mg/dL
--- NOTE | 2024-06-27 17:09 | PN ---
PROGRESS NOTE Sarkis is an 78-year-old gentleman with history of coronary artery disease, cardiomyopathy, who is admitted to hospital with pulmonary embolism and also had acute exacerbation of chronic systolic heart failure with bilateral leg edema. He has history of persistent atrial fibrillation. An echocardiogram on this admission revealed severe LV systolic dysfunction with an ejection fraction of 20% with moderate to severe mitral regurgitation. PHYSICAL EXAMINATION: GENERAL: Today, he is comfortable at rest. VITAL SIGNS: Heart rate is 75 beats per minute and irregular, blood pressure is 101/65, respiratory rate is 18, O2 saturation is 95% on room air. CHEST: Diminished air entry at the bases. HEART: First and second heart sounds. Irregular rhythm and a systolic murmur at the apex. ABDOMEN: Soft. EXTREMITIES: Reveals edema but improved compared to yesterday. ASSESSMENT AND PLAN: 1. Acute bilateral pulmonary embolism. 2. Cardiomyopathy with severe left ventricular systolic dysfunction. 3. Acute on chronic systolic heart failure. PLAN: I am going to switch his Lasix to p.o. Continue the IV heparin, switch him to Xarelto tomorrow and he will be discharged home at that time. We need to find out if the Xarelto is covered or not. I talked to patient about a LifeVest as there has been a significant change in his LV function. Normally, his ejection fraction is around 45%, it dropped into the 20s. He is going to give it a thought and make a decision. SUZY / NICOLEN: [id number] /
== END 2024-06-22 15:46 | disposition home or self-care (01) | DRG 175 ==
LOC: EC 13:34 → 3SCARD 16:29
PROVIDERS: ADMIT Student in an Organized Health Care Education/Training Program; ATTEND Student in an Organized Health Care Education/Training Program
DX: I26.99 Other pulmonary embolism without acute cor pulmonale (principal); I50.23 Acute on chronic systolic (congestive) heart failure; I42.8 Other cardiomyopathies; I11.0 Hypertensive heart disease with heart failure; I77.810 Thoracic aortic ectasia; I08.0 Rheumatic disorders of both mitral and aortic valves; I48.0 Paroxysmal atrial fibrillation; I49.3 Ventricular premature depolarization; I25.10 Atherosclerotic heart disease of native coronary artery without angina pectoris; M10.9 Gout, unspecified; E78.5 Hyperlipidemia, unspecified; T45.516A Underdosing of anticoagulants, initial encounter; Z91.128 Patient's intentional underdosing of medication regimen for other reason; I25.2 Old myocardial infarction; Z79.899 Other long term (current) drug therapy; Z87.891 Personal history of nicotine dependence; Z95.5 Presence of coronary angioplasty implant and graft
CPT/HCPCS: 96365; 96366; 96375; 99291

== ENCOUNTER 2024-07-14 06:32 | Day surgery (SDC) | payer MEDICARE ==
[2024-07-11 11:30] VITALS: BMI 27.6
[~2024-07-14 06:32] MED LIST changes: -ALPRAZolam 0.25 MG TAB PO PRN; -ALPRAZolam 0.5 MG TAB PO PRN; -ASPIRIN 325 MG TAB PO STA; -HEPARIN SODIUM,PORCINE 10,000 UNIT in SODIUM CHLORIDE 0.9% 1,000 ML IRRIGATION PRN; -HEPARIN SODIUM,PORCINE 2,500 UNIT in SODIUM CHLORIDE 0.9% 250 ML IRRIGATION PRN; +LACTATED RINGERS 1,000 ML IV SCH; -NITROGLYCERIN SL TABS 0.4 MG TAB SUBLINGUAL PRN; +SODIUM CHLORIDE 0.9% 1,000 ML IV SCH; -SODIUM CHLORIDE 0.9% 1,000 ML in EMPTY BAG 1 BAG IV ONE
[2024-07-14 07:08] VITALS: TEMP 96.8
[2024-07-14] MEDS: IV FLUID CONTINUATION 500 ML IV ONE (07:12)
[2024-07-14] MEDS: SODIUM CHLORIDE 0.9% 500 ML DEHP FREE BAG IV STA (07:12)
[2024-07-14 07:22] LABS: Glucose,Whole Blood 113 mg/dL (70-110)
[2024-07-14] MEDS ORDERED: LIDOCAINE 1% INJ 10MG/ML (20 ML MDV) ONE (07:30)
[2024-07-14] MEDS ORDERED: PROPOFOL 10 MG/ML 20 ML VIAL IV ONE (07:30)
--- NOTE | 2024-07-14 07:54 | P.PCN ---
Date of Procedure: 07/14/24 Operative Findings: Cardioversion Report Performing physician Rajat Murillo M.D. Procedure performed Successful cardioversion of atrial fibrillation to normal sinus mechanism using 120 J at first attempt Indication Symptomatic atrial fibrillation Complication None Level of sedation The procedure was performed under deep sedation using propofol with CRM CONSULTANT in the room Procedure description After obtaining an informed consent the patient was brought to the recovery room. Sedation was introduced using propofol with CRM CONSULTANT in the room. Subsequently the patient cardioverted from atrial fibrillation to normal sinus mechanism using 200 J and first attempt Conclusion Successful cardioversion of atrial fibrillation to normal sinus mechanism using 200 J Postprocedure management Continue the current medical regimen Continue oral anticoagulation Follow-up with the patient
[2024-07-14] MEDS: IV FLUID CONTINUATION 1,000 ML IV ONE (08:22)
[2024-07-14 09:26] VITALS: BP 109/45; PULSE 124; RESP 16
== END 2024-07-14 09:47 | disposition home or self-care (01) ==
LOC: OR 06:32
PROVIDERS: ATTEND Internal Medicine Interventional Cardiology
DX: I48.0 Paroxysmal atrial fibrillation
CPT/HCPCS: 92960

== ENCOUNTER 2025-02-22 13:19 | Day surgery (SDC) | payer MEDICARE ==
[2025-02-20 11:53] VITALS: BMI 27.6
[~2025-02-22 13:19] MED LIST changes: +HYDROmorphone 0.5 MG/0.5 ML SYRINGE IVP PRN; -LACTATED RINGERS 1,000 ML IV SCH; -SODIUM CHLORIDE 0.9% 1,000 ML IV SCH
[2025-02-22] MEDS: IV FLUID CONTINUATION 1,000 ML IV ONE (13:35)
[2025-02-22 13:51] VITALS: TEMP 97.7
[2025-02-22] MEDS: SODIUM CHLORIDE 0.9% 1,000 ML IV SCH (13:53)
[2025-02-22 13:55] LABS: Basophils # (A) 0.05 10*3/uL (0.00-0.10); Basophils % (A) 0.8 %; Eosinophils # (A) 0.16 10*3/uL (0.04-0.35); Eosinophils % (A) 2.4 %; HCT 45.5 % (39.6-50.0); HGB 15.1 g/dL (13.0-17.0); Lymphocytes # (A) 1.26 10*3/uL (0.90-5.00); Lymphocytes % (A) 19.1 %; MCH 31.1 pg (27.0-32.0); MCHC 33.2 g/dL (32.0-37.0); MCV 93.8 fL (80.0-97.0); Mean Platelet Volume 10.7 fL (9.5-12.2); Monocytes # (A) 0.67 10*3/uL (0.20-1.00); Monocytes % (A) 10.2 %; Neutrophils # (A) 4.39 10*3/uL (1.80-7.70); Neutrophils % (A) 66.7 %; Platelet Count 204 10*3/uL (140-440); RBC 4.85 10*6/uL (4.40-5.60); RDW 14.6 % (11.5-14.5); WBC 6.58 10*3/uL (4.50-10.00)
[2025-02-22 14:07] LABS: African American GFR (CKD) >90 (>60 ml/min/1.73 sqM); Anion Gap 9 mmol/L; Blood Urea Nitrogen 26 mg/dL (9-20); Calcium 9.6 mg/dL (8.4-10.2); Carbon Dioxide 25 mmol/L (22-30); Chloride 105 mmol/L (98-107); Glucose 92 mg/dL (74-99); Non-African American GFR(CKD) 80 (>60 ml/min/1.73 sqM); Potassium 4.3 mmol/L (3.5-5.1); Sodium 139 mmol/L (137-145)
[2025-02-22] MEDS ORDERED: MIDAZOLAM 2 MG/2 ML VIAL ONE (14:07)
[2025-02-22] MEDS ORDERED: fentaNYL (PF) 50 MCG/ML 2 ML AMP ONE (14:07)
[2025-02-22] MEDS: ceFAZolin 2 GM in DEXTROSE 5% IN WATER 50 ML IVPB PRN (14:43)
[2025-02-22] MEDS: LIDOCAINE 1% INJ 10MG/ML (20 ML MDV) SQ ONE (14:50)
[2025-02-22] MEDS: ROPIVACAINE 5 MG/ML 30 ML VIAL MISCELLANE ONE (14:50)
[2025-02-22] MEDS: ceFAZolin 1 GM in SODIUM CHLORIDE 0.9% IRRIG BTL 250 ML IRRIGATION PRN (14:51)
[2025-02-22] MEDS ORDERED: ACETAMINOPHEN TAB 325 MG TAB PO PRN (16:29)
--- NOTE | 2025-02-22 16:37 | P.EPPROC ---
- EP Procedure Note Electrophysiology Procedure Note: Diagnosis Cardiomyopathy, chronic, predominantly nonischemic, left ventricular ejection fraction less than 35% chronically despite guideline directed medical treatment CHF class II systolic Single-vessel left circumflex coronary artery disease that does not explain the degree of cardiomyopathy Symptomatic atrial fibrillation on amiodarone 100 mg daily Frequent PVCs Bradycardia/chronotropic incompetence on recent Holter monitor, on guideline directed Procedure: Dual-chamber ICD implantation for management of risk of sudden cardiac /bradycardia Result: Dual chamber ICD implantation, Griffith Atrial lead: P waves 0.5 mV, pacing impedance 440 ohms. Threshold less than 1 V at 0.5 ms RV ICD lead: Pacing threshold 0.5 V at 0.5 ms. R waves 12 mV and pace impedance 810 ohms High-voltage impedance 89 ohms During atrial pacing, patient developed evidence of slow pathway conduction antegradely followed by AV brian reentrant tachycardia. Atrial pacing performed to terminate the tachycardia Very diminutive atrial signals but good current of injury Procedure details: Patient was brought to the EP lab in a fasting state. Written informed consent was obtained prior to the procedure. Options, pros and cons, benefits and risks and complications discussed with patient in detail prior to the procedure (shared decision making). Importance of continuing medical treatment emphasized. Alternatives discussed. Patient would like to proceed with dual-chamber ICD implant. Left upper extremity venogram performed. 15 mL IV dye injected in the left arm. Patent axillary/subclavian vein The left pectoral area was prepped and draped as a protocol. IV antibiotics administered 1% lidocaine was used for local anesthesia. A 4 cm incision was made parallel to the deltopectoral groove, about 1.5 cm medial to it. The incision was carried down to the level of the pectoralis muscle and the subfascial pocket was made. Hemostasis was assured. The axillary vein access was obtained. Appropriately sized into to see sheaths were placed. ICD lead implanted in the right ventricle and screwed in. ICD lead tested for threshold, sensing, impedances and tested with high output pacing for diaphragmatic stimulation Atrial lead placed in the right atrial appendage and tested for threshold, sensing, impedance, and tested with high output pacing. Phrenic nerve stimulation Lead secured to the underlying transverse muscle after removing sheaths . Pocket irrigated with antibiotic solution Leads connected to the dual-chamber ICD generator. Wound closed in 3 layers and dressed per protocol Dual ICD interrogated and programmed. Appropriate pacing parameters, antitachycardia therapies with antitachycardia pacing cardioversion defibrillations programmed. Patient tolerated the procedure well without any acute complications. See scanned device report in EMR for lead details Plan Defibrillation level testing in 8 weeks If he has AV brian reentry, consider SVT ablation Consider A-fib ablation for breakthrough episodes of A-fib If he has frequent PVCs, consider PVC ablation
[2025-02-22] MEDS: ONDANSETRON 4 MG/2 ML VIAL IVP ONE (16:54)
[2025-02-22] MEDS: DEXAMETHASONE SOD PHOSPHATE 4 MG/ML 1 ML VIAL IV ONE (16:54)
[2025-02-22] MEDS: LACTATED RINGERS 1,000 ML IV SCH (16:54)
--- NOTE | 2025-02-22 17:18 | XR ---
EXAMINATION TYPE: XR chest 1V portable DATE OF EXAM: 02/22/2025 5:15 PM COMPARISON: 12/11/2024 CLINICAL INDICATION: Male, 79 years old with history of Lead placement check, TECHNIQUE: XR chest 1V portable views of the chest are obtained. FINDINGS: Demonstrated are scattered senescent parenchymal change. Dual-lead pacer with distal leads within th e right atrial and right ventricle respectively. No evidence for pneumothorax. There is no evidence for focal infiltrate. The heart is stable. Hilar and mediastinal structures are within normal limits. Degenerative changes are seen of the dorsal spine. IMPRESSION: 1. Chronic changes without evidence for acute pulmonary disease. [facility], , 02/22/2025 5:16 PM
[2025-02-22] MEDS: ACETAMINOPHEN IV (For NPO) 1,000 MG in EMPTY BAG 1 BAG IVPB ONE (17:20)
[2025-02-22 21:17] VITALS: PULSE 67
[2025-02-22 21:18] VITALS: BP 112/60; RESP 16
[2025-02-22] MEDS: SODIUM CHLORIDE 0.9% 250 ML IV ONE (21:21)
== END 2025-02-22 21:00 | disposition home or self-care (01) ==
LOC: CATHEP 13:19 → 6NMEDSUR 16:25 → CATHEP 21:00
PROVIDERS: ATTEND Internal Medicine Clinical Cardiac Electrophysiology
DX: I42.8 Other cardiomyopathies (principal); I11.0 Hypertensive heart disease with heart failure; I50.22 Chronic systolic (congestive) heart failure; I48.0 Paroxysmal atrial fibrillation; I25.10 Atherosclerotic heart disease of native coronary artery without angina pectoris; I47.19 Other supraventricular tachycardia; E78.5 Hyperlipidemia, unspecified; I77.810 Thoracic aortic ectasia; I08.3 Combined rheumatic disorders of mitral, aortic and tricuspid valves; I49.3 Ventricular premature depolarization; R00.1 Bradycardia, unspecified; Z79.01 Long term (current) use of anticoagulants; Z79.84 Long term (current) use of oral hypoglycemic drugs; Z79.899 Other long term (current) drug therapy; Z86.711 Personal history of pulmonary embolism; Z91.81 History of falling
CPT/HCPCS: 33249; 80048; 84443; 85025; 71045; C1769 ×2; C1721; C1898; C1892; C1777; J2250; J0690; J2003; J3010; J2795; J0131

== ENCOUNTER 2025-04-24 09:58 | Day surgery (SDC) | payer MEDICARE ==
[2025-04-24] MEDS: SODIUM CHLORIDE 0.9% 1,000 ML IV SCH (10:17)
[2025-04-24 10:20] VITALS: TEMP 98.5
[2025-04-24] MEDS: IV FLUID CONTINUATION 1,000 ML IV ONE (10:21)
[2025-04-24] MEDS ORDERED: PROPOFOL 10 MG/ML 20 ML VIAL IV ONE (11:27)
--- NOTE | 2025-04-24 12:22 | P.EPPROC ---
- EP Procedure Note Electrophysiology Procedure Note: Diagnosis Ischemic cardiomyopathy dual-chamber ICD implanted AV brian reentry induced during atrial pacing at implant Nacho Sabillon DR dual-chamber ICD interrogated RV threshold 0.9 V at 0.5 ms, R waves 12 mV and pacing impedance 1150 ohms High-voltage impedance 70 ohms VF was induced and appropriately detected at least sensitivity without any dropouts and successfully internally defibrillated with a 10 J shock Charge time was 1.5 seconds, high-voltage impedance 75 ohms Shock configuration RV towards can, anode positive Device was reprogrammed First shock at 20 J in the VT 1 zone subsequent shocks in the VT 1 zone at 30 J Appropriate antitachycardia pacing cardioversion and defibrillation programmed No evidence for spontaneous AV brian reentry, Patient tolerated the procedure well without any acute complications
--- NOTE | 2025-04-24 12:33 | P.HPCAR ---
History of Present Illness This is Dr. Duarte dictating an H/P on this patient The patient was interviewed and examined IMPRESSION / ASSESSMENT: Symptomatic persistent atrial fibrillation Hypertrophic cardiomyopathy with LVH, nonobstructive Shortness of breath with average activities and intolerance to amiodarone Hypertension Intermittent PVCs ICD implant PLAN: Proceed with A-fib ablation Continue anticoagulation Heparin dose calculated Stop amiodarone after 1 month HPI Patient has symptomatic atrial fibrillation with a lot of fatigue and shortness of breath. He is underlying hypertrophic cardiomyopathy He denies any chest discomfort dizziness lightheadedness in the last 1 week No angina ROS: No fever chills or rigors, no cough, phlegm or expectoration, no nausea, vomiting or diarrhea, no hematuria, dysuria, no musculoskeletal complaints, no strokes or seizures, no skin lesions. EXAMINATION: Blood pressure 149/93 mmHg afebrile pulse rate in the 90s Heart sounds S1-S2 soft no murmurs Clear lungs Abdomen soft No lower extremity edema REVIEW OF LABS, ECG & MEDICAL DATA On Xarelto, metoprolol, Lasix, Zetia, Farxiga and amiodarone along with Entresto Physical Exam Vitals: Vital Signs Temp Pulse Resp BP Pulse Ox 04/24/25 11:41 69 16 100/62 94 L 04/24/25 10:18 98.5 F 90 16 149/93 95 Intake and Output 04/23/25 04/24/25 04/24/25 22:59 06:59 14:59 Intake Total 50 Balance 50 Intake: IV 50 Other: Weight 90.8 kg Past Medical History Past Medical History: Atrial Fibrillation, Cancer, Heart Failure, GERD/Reflux, Hearing Disorder / Deafness, Hyperlipidemia, Hypertension, Myocardial Infarction (IA), Osteoarthritis (OA), Pulmonary Embolus (PE), Sleep Apnea/CPAP/BIPAP Additional Past Medical History / Comment(s): Hx PE's, right leg peripheral swelling, mitral valve leak, murmur, gout, hx skin cancer, no device use for sleep apnea, hearing aid use. Last Myocardial Infarction Date:: unknown History of Any Multi-Drug Resistant Organisms: None Reported Past Surgical History: AICD, Heart Catheterization With Stent, Joint R eplacement, Orthopedic Surgery Additional Past Surgical History / Comment(s): RIGHT KNEE ARTHROSCOPY, bilateral cataract surgery, partial left knee replacement. Past Anesthesia/Blood Transfusion Reactions: No Reported Reaction Additional Past Anesthesia/Blood Transfusion Reaction / Comment(s): No hx blood transfusion. Date of Last Stent Placement:: 2020 Type of Cardiac Device: AICD Device Placement Date:: February 2025 Smoking Status: Former smoker - Past Family History Father Family Medical History: Cancer Additional Family Medical History / Comment(s): Brain tumor. Mother Family Medical History: Chest Pain / Angina Physical Examination Vital Signs Temp Pulse Resp BP Pulse Ox 04/24/25 11:41 69 16 100/62 94 L 04/24/25 10:18 98.5 F 90 16 149/93 95 Intake and Output 04/23/25 04/24/25 04/24/25 22:59 06:59 14:59 Intake Total 50 Balance 50 Intake: IV 50 Other: Weight 90.8 kg Results Current Medications Generic Name Dose Route Start Last Admin Trade Name Freq PRN Reason Stop Dose Admin Sodium Chloride 1,000 mls @ 20 mls/hr 04/24/25 05:51 04/24/25 10:17 Saline 0.9% IV 05/24/25 05:50 20 mls/hr .Q24H PATSY Administration Intake and Output 04/23/25 04/24/25 04/24/25 22:59 06:59 14:59 Intake Total 50 Balance 50 Intake: IV 50 Other: Weight 90.8 kg Patient Weight 04/25/25 06:59 Weight 90.8 kg
[2025-04-24 12:48] VITALS: RESP 18
[2025-04-24 12:51] VITALS: BP 117/90; PULSE 56
== END 2025-04-24 13:30 | disposition home or self-care (01) ==
LOC: CATHEP 09:58
PROVIDERS: ATTEND Internal Medicine Clinical Cardiac Electrophysiology
DX: I42.2 Other hypertrophic cardiomyopathy (principal); I11.0 Hypertensive heart disease with heart failure; I25.2 Old myocardial infarction; I48.19 Other persistent atrial fibrillation; I50.9 Heart failure, unspecified; I49.5 Sick sinus syndrome; E78.5 Hyperlipidemia, unspecified; H91.90 Unspecified hearing loss, unspecified ear; G47.30 Sleep apnea, unspecified; I49.3 Ventricular premature depolarization; M19.90 Unspecified osteoarthritis, unspecified site; Z79.01 Long term (current) use of anticoagulants; Z85.828 Personal history of other malignant neoplasm of skin; Z86.711 Personal history of pulmonary embolism; Z95.810 Presence of automatic (implantable) cardiac defibrillator; Z87.891 Personal history of nicotine dependence; Z79.899 Other long term (current) drug therapy
CPT/HCPCS: 93642; J2704